=== PATIENT | female | born 1945 | race Caucasian/White ===

== ENCOUNTER 2017-08-11 11:00 | Outpatient (CLI) | payer MEDICARE ==
--- NOTE | 2017-08-11 12:20 | RAD ---
TWO VIEWS OF THE CHEST: 08/11/17 COMPARISON: 07/08/16 HISTORY: Cough with fever and congestion since Tuesday. FINDINGS: Two views of the chest shows normal sized cardiomediastinal silhouette. Increased interstitial kalpana ngs are present. There is a calcified granuloma in the right lung base. There is no evidence of cons olidation, or pleural effusion. Degenerative changes are seen in the spine. Hardware is seen in the cervical spine. IMPRESSION: No evidence of acute cardiopulmonary disease. POS: [facility]
== END 2017-08-11 11:01 | disposition home or self-care (01) ==
LOC: SCSRAD 11:00
PROVIDERS: ATTEND Nurse Practitioner Family
DX: R05 Cough (principal)
CPT/HCPCS: 71020

== ENCOUNTER 2018-02-06 16:41 | Inpatient (IN) | payer MEDICAID, MEDICARE ==
[2018-02-06] MEDS ORDERED: Morphine 4 MG/ML VIAL ONE ×2 (17:32→19:06)
[2018-02-06 17:38] LABS: #Eosinphils 0.1 thou/uL (0.0-0.7); #Lymphocytes 0.5 thou/uL (1.20-3.40); #Monocytes 0.3 thou/uL (0.11-0.59); #Neutrophils 1.9 thou/uL (1.40-6.50); %Eosinophils 2.2 % (0.0-10.0); %Lymphocytes 18.7 % (21.0-51.0); %Monocytes 11.6 % (0.0-10.0); %Neutrophils 67.4 % (42.0-75.0); Hemoglobin 13.9 g/dL (12.0-16.0); Mean Corpuscular HGB CONC 33.1 g/dL (32.0-36.0); Mean Corpuscular Hemoglobin 34.3 pg (27.0-31.0); Mean Platelet Volume 7.7 fL (7.4-10.4); Platelet Count 100 thou/uL (130-400); RBC Distribution Width 12.5 % (11.5-14.5); Red Blood Cell (RBC) Count 4.05 mill/uL (4.20-5.40); White Blood Cell (WBC) Count 2.9 thou/uL (4.8-10.8)
[2018-02-06 17:54] LABS: ALT (SGPT) 22 U/L (8-55); AST (SGOT) 47 U/L (5-34); Albumin 3.3 g/dL (3.4-4.8); Alkaline Phosphatase 143 U/L (40-150); Anion Gap 11 mmol/L (10-20); BUN (Urea Nitrogen) 9 mg/dL (9.8-20.1); Bilirubin, Total 0.9 mg/dL (0.2-1.2); Calc. Creatinine Clearance 0 mL/min (70-130); Calcium 9.2 mg/dL (7.8-10.44); Carbon Dioxide 28 mmol/L (23-31); Chloride 101 mmol/L (98-107); Estimated GFR-MDRD 74; Globulin 2.9 g/dL (2.4-3.5); Glucose 395 mg/dL (83-110); Potassium 4.4 mmol/L (3.5-5.1); Protein, Total 6.2 g/dL (6.0-8.3); Sodium 136 mmol/L (136-145)
--- NOTE | 2018-02-06 19:19 | RAD ---
AP VIEW PELVIS: INDICATIONS: Right hip pain after fall. FINDINGS: There is a comminuted right hip intertrochanteric fracture with varus malalignment. There is diffuse osteopenia. No definite additional fracture is grossly evident. IMPRESSION: Angulated right intertrochanteric hip fracture. POS: [facility]
--- NOTE | 2018-02-06 19:32 | RAD ---
AP VIEW CHEST: INDICATIONS: History of fall. FINDINGS: There is stable mild cardiomegaly. There are vascular calcifications involving the aortic arch. No confluent air space opacity is evident. Calcified granuloma in the right lower lobe is stable. Diff use osteopenia is similar. The ACDF plate is unchanged in position from the comparison study. IMPRESSION: Stable cardiomegaly. No definite acute cardiopulmonary abnormality. POS: [facility]
--- NOTE | 2018-02-06 19:33 | RAD ---
RIGHT HIP TWO VIEWS: INDICATIONS: Right hip pain. FINDINGS: There is an angulated, mildly comminuted right intertrochanteric hip fracture. There is moderate carlyn us angulation at the fracture site. No additional fracture is evident. There is diffuse osteopenia. IMPRESSION: Angulated right intertrochanteric hip fracture. POS: [facility]
[2018-02-06 20:07] LABS: CKMB 0.9 ng/mL (0-6.6); Troponin I Less than 0.010 ng/mL (< 0.028)
[2018-02-06] MEDS ORDERED: Ketorolac Tromethamine 30 MG/ML VIAL ONE (20:25)
[2018-02-06] MEDS ORDERED: Ondansetron ODT 4 MG TAB PO PRN (21:38)
[2018-02-06] MEDS ORDERED: Dextrose 5% in Water 1,000 ML IV PRN (21:38)
[2018-02-06] MEDS ORDERED: Ondansetron HCl/PF 4 MG/2 ML Vial IVP PRN (21:38)
[2018-02-06] MEDS ORDERED: hydrALAZINE 20 MG/ML VIAL SLOW IVP PRN (21:38)
[2018-02-06] MEDS ORDERED: Dextrose 50% Abboject 50 ML SYRINGE SLOW IVP PRN (21:38)
[2018-02-06] MEDS ORDERED: Morphine 4 MG/ML VIAL SLOW IVP PRN (21:38)
[2018-02-06] MEDS ORDERED: Famotidine 20 MG TAB PO SCH (21:45)
[2018-02-06 21:58] VITALS: BMI 32.9
[2018-02-06] MEDS: Morphine 4 MG/ML VIAL SLOW IVP PRN (22:32)
[2018-02-06] MEDS: Sodium Chloride 0.9% 1,000 ML IV SCH (22:33)
[2018-02-06] MEDS: Insulin Regular 300 UNITS/3 ML VIAL SC PRN (23:04)
[2018-02-07] MEDS: Ketorolac Tromethamine 30 MG/ML VIAL IVP SCH ×5 (00:19→23:45)
--- NOTE | 2018-02-07 00:31 | HP ---
DATE OF ADMISSION: 02/06/2018 REQUESTING PHYSICIAN: Dr. Ibarra. ATTENDING SURGEON: Dr. Cline. CONSULTATIONS: Orthopedics, Dr. Aj. HISTORY OF PRESENT ILLNESS: The patient is a 72-year-old female who was at home and her right leg buckled and she fell down on her right side. The patient had immediate right-sided hip pain. She was brought to the emergency room by ground EMS. She underwent evaluation and examination and was noted to have a right proximal femur fracture, at which time we were asked to evaluate the patient for admission and obtain Orthopedic consultation. The patient denied dizziness, shortness of breath, chest pain, or any syncopal type symptoms prior to falling or after her fall. ALLERGIES: ALBUTEROL, BARIUM, IODINE, and TYLENOL. CURRENT MEDICATIONS: Hydrocodone with ibuprofen, potassium, Zofran, melatonin, lactulose, quinine, iron, pantoprazole, isosorbide, carvedilol, hydroxyzine, NovoLog, Lantus, and Lexapro. PAST MEDICAL HISTORY: CHF, COPD, type 2 diabetes, liver cirrhosis, atherosclerosis, sciatica, fibromyalgia, gastroesophageal reflux disease, and peptic ulcer disease. PAST SURGICAL HISTORY: Neck surgery, right ankle surgery, cardiac stent x3, cholecystectomy, and hysterectomy. SOCIAL HISTORY: The patient denies drug or alcohol use. Quit smoking approximately 5 years ago and currently lives with her family. FAMILY MEDICAL HISTORY: Diabetes, hypertension, and liver disease. REVIEW OF SYSTEMS: Ten-point review of systems is negative, unless otherwise stated. PHYSICAL EXAMINATION: VITAL SIGNS: Blood pressure 131/62, heart rate 60, respirations 18, oxygen saturation 95% on room air, temperature is 98.1. GENERAL: The patient is resting comfortably in bed. She is alert and oriented x3. Tejinder coma scale is 15. HEENT: Head is normocephalic, atraumatic. Eyes: Extraocular motion intact. PERRLA bilaterally. Ears are atraumatic without discharge. Nose is atraumatic without discharge. Oropharynx is clear. NECK: Nontender. Trachea is midline. No JVD. CHEST: Clear to auscultation with scant occasional wheezing bilaterally. HEART: Regular rate and rhythm. ABDOMEN: Soft, flat, nontender with active bowel sounds. Pelvis is stable with tenderness to palpation to right hip consistent with her fracture. EXTREMITIES: Neurovascularly intact x4. BACK: Nontender and atraumatic. LABORATORY FINDINGS: White blood cell count 2.9, hemoglobin 13.9, hematocrit 42.0, platelets 100. Sodium 136, potassium 4.4, chloride 101, CO2 of 28, BUN 9 , creatinine 0.77, glucose 395. Total bilirubin 0.9, AST 47, ALT 22, alkaline phosphatase 143, CK-MB 0.9, troponin less than 0.010. RADIOGRAPHIC FINDINGS: AP chest shows stable cardiomegaly. AP pelvis shows an angulated right intertrochanteric hip fracture. Two-views of the right hip show angulated right intertrochanteric hip fracture. ASSESSMENT AND PLAN: 1. Status post ground level fall. 2. Right hip fracture. 3. Hyperglycemia. 4. History of chronic obstructive pulmonary disease. 5. History of coronary artery disease/congestive heart failure. 6. History of fibromyalgia. Plan will be to admit the patient to the surgical floor for pain control, pulmonary toilet, gastritis, mechanical deep venous thrombosis prophylaxis. The patient will be made n.p.o. after midnight and case was discussed with Dr. Aj. His plan is to take her to the operating room tomorrow morning. The evaluation, examination, and laboratory and radiographic findings will be discussed with Dr. Cline after this dictation. ELLIE
[2018-02-07 02:01] LABS: #Lymphocytes 0.8 thou/uL (1.20-3.40); #Monocytes 0.7 thou/uL (0.11-0.59); #Neutrophils 3.2 thou/uL (1.40-6.50); %Basophils 0.3 % (0.0-1.0); %Lymphocytes 16.2 % (21.0-51.0); %Neutrophils 68.5 % (42.0-75.0); Hemoglobin 12.6 g/dL (12.0-16.0); Mean Corpuscular Hemoglobin 34.7 pg (27.0-31.0); Mean Platelet Volume 7.7 fL (7.4-10.4); Platelet Count 94 thou/uL (130-400); RBC Distribution Width 12.6 % (11.5-14.5); Red Blood Cell (RBC) Count 3.62 mill/uL (4.20-5.40); White Blood Cell (WBC) Count 4.7 thou/uL (4.8-10.8)
[2018-02-07 02:23] LABS: CKMB 0.7 ng/mL (0-6.6); Troponin I Less than 0.010 ng/mL (< 0.028)
[2018-02-07 02:55] LABS: Anion Gap 7 mmol/L (10-20); BUN (Urea Nitrogen) 13 mg/dL (9.8-20.1); Calc. Creatinine Clearance 91 mL/min (70-130); Calcium 8.8 mg/dL (7.8-10.44); Carbon Dioxide 31 mmol/L (23-31); Chloride 103 mmol/L (98-107); Estimated GFR-MDRD 74; Glucose 262 mg/dL (83-110); Magnesium 1.8 mg/dL (1.6-2.6); Phosphorus 3.5 mg/dL (2.3-4.7); Potassium 4.4 mmol/L (3.5-5.1); Sodium 137 mmol/L (136-145)
[2018-02-07] MEDS: Morphine 4 MG/ML VIAL SLOW IVP PRN (04:09)
--- NOTE | 2018-02-07 09:12 | CON ---
DATE OF CONSULTATION: 02/07/2018 CHIEF COMPLAINT: Right hip pain. HISTORY OF PRESENT ILLNESS: Ms. Aguirre is a 72-year-old female who lives with her family. She is fair ly independent. She uses a cane for balance. She does not fall frequently. She lost her balance, t gita yesterday and fell on her right side. She had immediate pain in the right hip and leg. She wa s unable to ambulate. She was taken to the emergency department by EMS. She has been found to have a right intertrochanteric femur fracture. She has been admitted to the hospital. She has been comfo rtable after receiving pain medication. She is resting with family with her. She has a previous dis buck femur fracture several years ago she reports. ALLERGIES: ALBUTEROL, BARIUM, IODINE, TYLENOL. MEDICATIONS: Include hydrocodone for chronic pain, potassium, Zofran, melatonin, lactulose, quinine, iron, pantoprazole, isosorbide, carvedilol, hydroxyzine, NovoLog, Lantus, and Lexapro. PAST MEDICAL HISTORY: Congestive heart failure, COPD, diabetes, arthrosclerosis, sciatica, fibromyal karthik, GERD, peptic ulcer disease, and history of liver cirrhosis. PAST SURGICAL HISTORY: Right ankle surgery, cardiac stenting, cholecystectomy, previous cervical spi ne surgery. SOCIAL HISTORY: Patient denies tobacco, alcohol, or drug use currently. FAMILY MEDICAL HISTORY: Positive for diabetes and hypertension. REVIEW OF SYSTEMS: Positive for right hip pain. She feels sleepy. Otherwise, she denies positives on 10 point review of systems. PHYSICAL EXAMINATION: VITAL SIGNS: Temperature is 97.7, pulse is 78, respiratory rate 16, oxygen saturation 99%, blood pre ssure is 93/58. GENERAL: She is lying supine. She is asleep upon my arrival, but easily arousable. She answers que stions appropriately. HEENT: Normocephalic, atraumatic. NECK: She is wearing nasal cannula oxygen. RESPIRATORY: Breathing comfortably. CARDIOVASCULAR: Pulse is palpable and regular. ABDOMEN: Soft, nontender, and nondistended. MUSCULOSKELETAL: The patient's right leg has pain with motion. She is in a shortened and externally rotated position. She has intact sensation distally. She can wiggle the toes. She has a palpable dorsalis pedis pulse. IMAGING DATA: X-rays demonstrate an intertrochanteric femur fracture with significant displacement o f the right femur. IMPRESSION: Right intertrochanteric femur fracture in an elderly patient. PLAN: At this point, the patient will go to the operating room for a short trochanteric femoral nail . This will stabilize her femur and allow her to mobilize. This will provide pain relief. She is a t risk for medical complication given her multiple medical problems. She has fair health and activit y level at baseline, so hopefully she will do well. I have reviewed risks and benefits. Her family and the patient wants to proceed.
[2018-02-07 09:48] LABS: INR-International Normal Ratio 1.5; PTT 32.6 SEC (22.9-36.1)
[2018-02-07] MEDS: Famotidine 20 MG TAB PO SCH ×2 (09:52→21:27)
[2018-02-07] MEDS: Sodium Chloride 0.9% 1,000 ML IV SCH ×2 (10:03→20:05)
[2018-02-07] MEDS ORDERED: CEFAZOLIN/Water 2 GM/20 ML SYRINGE SLOW IVP SCH (12:00)
[2018-02-07] MEDS ORDERED: Fentanyl 250 MCG/5 ML VIAL ONE (13:00)
[2018-02-07] MEDS ORDERED: CEFAZOLIN/Water 2 GM/20 ML SYRINGE ONE (13:15)
[2018-02-07] MEDS ORDERED: Fentanyl 100 MCG/2 ML VIAL ONE (13:27)
--- NOTE | 2018-02-07 14:38 | OP ---
DATE OF PROCEDURE: 02/07/2018 OPERATION: Right femur intramedullary nail. PREOPERATIVE DIAGNOSIS: Right femur intertrochanteric fracture. POSTOPERATIVE DIAGNOSIS: Right femur intertrochanteric fracture. COMPLICATIONS: None. ESTIMATED BLOOD LOSS: 200 mL. SURGEON: Sid Aj M.D. WINDOWS SUPPORT ENGINEER: Jasper Reilly PA-C. IMPLANTS: Synthes short trochanteric nail size 12. INDICATIONS: Ms. Aguirre is a 72-year-old female who fell. She fractured her right proximal femur. Sh e was indicated for intramedullary nail fixation of the femur to restore anatomic alignment and promo te healing. Risks have been reviewed. She elected to proceed with the surgery. Goal of surgery is early mobilization. DESCRIPTION OF PROCEDURE: Ms. Aguirre was identified in the preoperative holding area. Her correct ext remity was marked. She was carried to the operating room. She was positioned supine. General anest hesia was induced. A multidisciplinary timeout was performed. The right lower extremity was prepped and draped in sterile fashion. We began the procedure with evaluation of the femur with intraoperative x-ray. We reduced the fractu re with longitudinal traction and manipulation. At this point, we prepped and draped the right lower extremity. We then proceeded with a small incision over the proximal thigh. We dissected down thro ugh subcutaneous tissues to the tip of the trochanter. A guidewire was inserted. We then over reame d the guidewire. Next, we placed a size 12 short trochanteric nail. We then placed our guidewire in centered position of the femoral head. We placed the helical blade. This was locked in a dynamic p osition. We then placed our distal cross lock screw using the appropriate guide. We took final imag es. We thoroughly irrigated. The tissues were closed with 0 Vicryl suture, 2-[address] aples for the skin. A sterile dressing was applied at this point. The patient was taken to the [facility] very room in good condition without complication.
[2018-02-07] MEDS ORDERED: Ondansetron HCl/PF 4 MG/2 ML Vial IVP PRN (14:59)
[2018-02-07] MEDS ORDERED: Promethazine HCl 25 MG/ML VIAL IM PRN (14:59)
[2018-02-07] MEDS ORDERED: Meperidine HCl/PF 25 MG/ML VIAL SLOW IVP PRN (14:59)
[2018-02-07] MEDS ORDERED: PHENYLEPHRINE-NS 100 MCG/ML 10 ML SYRINGE ONE (16:34)
[2018-02-07] MEDS ORDERED: Glycopyrrolate 0.2 MG/ML 5 ML SYRINGE ONE (16:34)
[2018-02-07] MEDS ORDERED: ePHEDrine/0.9% NaCl/PF SYRINGE 50 mg/10 ml ONE (16:34)
[2018-02-07] MEDS ORDERED: Lidocaine 1% PF 5 ML VIAL ONE (16:34)
[2018-02-07] MEDS ORDERED: PROPOFOL 200 MG/20 ML VIAL ONE (16:34)
--- NOTE | 2018-02-07 18:59 | RAD ---
THREE VIEWS OF THE RIGHT HIP: 02/07/18 INDICATION: Trochanteric nail. COMPARISON: Prior exam dated 02/06/18. FINDINGS: Since the comparison examination there has been interval placement of a cephalomedullary device trans fixing the patient's right intertrochanteric fracture. Fracture alignment is near anatomic. Instrumen tation projects in the expected position. Total fluoroscopic time is 30.2 seconds. Total exposure is 5.5 mGy. IMPRESSION: Postop right hip. POS: [facility]
--- NOTE | 2018-02-07 19:26 | PRG ---
DATE OF SERVICE: 02/07/2018 ATTENDING PHYSICIAN: Dr. Bolivar Deleon. SUBJECTIVE: Mrs. Aguirre is a 72-year-old female who suffered a ground-level fall yesterday and was fou nd to have a right proximal femur fracture. She is scheduled to go to the OR today with Dr. Chato estrella for surgical fixation of this fracture. This morning on exam, she reports that her pain is well co ntrolled. She voices no other complaints. OBJECTIVE: VITAL SIGNS: Blood pressure 93/58, pulse 78, temperature 97.7, respirations 16, O2 sat 99% on 1.5 li ters. GENERAL: The patient is an elderly adult female in no acute distress. HEENT: Normocephalic and atraumatic. RESPIRATORY: Breath sounds are mostly clear to auscultation bilaterally. She does have occasional w heezes. CARDIOVASCULAR: She has regular rate and rhythm. No murmurs, gallops or rubs. ABDOMEN: Soft, nontender, nondistended. She has normal bowel sounds. EXTREMITIES: She is neurovascularly intact x4. NEUROLOGIC: She has no focal deficits. She is alert and oriented x3. GCS is 15. LABORATORY DATA: WBC is 4.7, hemoglobin 12.6, hematocrit 36.9, platelets 94. Coag: PT 18.0, INR 1. 5, APTT 32.6. Chemistry: Sodium 137, potassium 4.4, chloride 103, bicarbonate 31, BUN 13, creatinin e 0.77, glucose 262, calcium 8.8, phosphorus 3.5, magnesium 1.8. IMAGING: There are no radiographs reviewed today. ASSESSMENT: 1. Status post ground-level fall. 2. Right hip fracture. 3. Hyperglycemia. 4. History of chronic obstructive pulmonary disease. 5. History of coronary artery disease and congestive heart failure. 6. History of fibromyalgia. 7. History of chronic liver disease. PLAN: The plan is to go to the OR today with Dr. Aj for surgical fixation of her right hip. Postoperatively, we will optimize the patient's pain control. She will need PT and OT for help with mobilization. Patient will likely be a good candidate for rehabilitation, so rehab screen will be pl aced. Gastritis and DVT prophylaxis as appropriate. Incentive spirometry and pulmonary toileting as well. This patient was seen and examined on rounds with Dr. Deleon who agrees with this assessment plan.
[2018-02-07] MEDS ORDERED: Hydrocortisone Sod Succ/PF 100 mg/2 ml Vial IVP SCH (20:00)
[2018-02-07] MEDS ORDERED: Sodium Chloride 0.9% 250 ML 250 ML IV SCH (20:00)
[2018-02-07] MEDS: Insulin Regular 300 UNITS/3 ML VIAL SC PRN (21:16)
[2018-02-07 21:19] LABS: Troponin I Less than 0.010 ng/mL (< 0.028)
[2018-02-07] MEDS: CEFAZOLIN/Water 2 GM/20 ML SYRINGE SLOW IVP SCH (21:50)
--- NOTE | 2018-02-07 23:57 | PRG ---
DATE OF SERVICE: 02/07/2018 ATTENDING PHYSICIAN: Dr. Bolivar Deleon. SUBJECTIVE: Ms. Aguirre is a 72-year-old female, who had a ground-level fall with right hip fracture. She underwent fixation of right hip fracture today. She is currently seen postoperatively on the surgical floor. OBJECTIVE: VITAL SIGNS: Temperature 98.6, pulse 99, respirations 18, O2 sat 96% on 3 liters nasal cannula, blood pressure 93/57. CARDIOVASCULAR: Heart sounds normal, regular rate and rhythm. PULMONARY: Bilateral breath sounds clear. No respiratory distress. ABDOMEN: Soft, nontender, nondistended. EXTREMITIES: Dressing in place to right hip, clean, dry, and intact. Moves all extremities. Cap refill brisk in all extremities. Pulses 2+ in all extremities. NEUROLOGIC: GCS 15, awake, alert, oriented x3. ASSESSMENT: 1. Status post ground-level fall. 2. Status post open reduction and internal fixation, right hip fracture. 3. Postoperative hypotension, asymptomatic. PLAN: 1. We will give the patient 250 mL fluid bolus. 2. Begin hydrocortisone and check cortisol level. 3. Continue oral analgesia. 4. Antibiotics per Orthopedic Service. 5. Lovenox for deep vein thrombosis prophylaxis. MTDD
[2018-02-08] MEDS: Hydrocortisone Sod Succ/PF 100 mg/2 ml Vial IVP SCH ×3 (04:18→20:16)
[2018-02-08] MEDS: Sodium Chloride 0.9% 1,000 ML IV SCH ×2 (04:18→12:47)
[2018-02-08] MEDS: Insulin Regular 300 UNITS/3 ML VIAL SC PRN ×4 (06:11→21:30)
[2018-02-08] MEDS: Ketorolac Tromethamine 30 MG/ML VIAL IVP SCH (06:12)
[2018-02-08] MEDS: CEFAZOLIN/Water 2 GM/20 ML SYRINGE SLOW IVP SCH (06:12)
[2018-02-08] MEDS: Enoxaparin Sodium 40 MG/0.4 ML SYRINGE SC SCH (08:12)
[2018-02-08] MEDS: Famotidine 20 MG TAB PO SCH ×2 (08:12→20:16)
[2018-02-08] MEDS ORDERED: traMADol HCl 50 MG TAB PO PRN (09:59)
[2018-02-08] MEDS: Morphine 4 MG/ML VIAL SLOW IVP PRN (10:03)
[2018-02-08] MEDS: Ibuprofen 600 MG TAB PO SCH ×2 (10:33→17:08)
[2018-02-08] MEDS: traMADol HCl 50 MG TAB PO SCH ×3 (10:33→21:29)
--- NOTE | 2018-02-08 12:53 | RAD ---
AP PELVIS ONE VIEW: HISTORY: Right hip fracture. COMPARISON: 02/06/2018 FINDINGS: A compression and short kerwin now transfix the right hip fracture, in anatomic alignment. Sacral ala a nd pelvic rings are intact. Osseous structures are demineralized. IMPRESSION: 1. Internal fixation, right hip, without evidence of hardware complication. 2. Osteoporosis. POS: [facility]
--- NOTE | 2018-02-08 18:08 | PRG ---
DATE OF SERVICE: 02/08/2018 ATTENDING PHYSICIAN: Bolivar Deleon D.O. SUBJECTIVE: Ms. Aguirre is a 72-year-old female who suffered a ground level fall 2 days ago and was fou nd to have a right proximal femur fracture. She is now postop day #1 status post ORIF of her fractur e. Overnight, she developed hypotension into the 80s, was given a 250 mL bolus after which her blood pressure responded somewhat. She was given another 250 mL bolus this morning. She was also started on hydrocortisone 100 mg as well as 50 mg q.8 hours. This morning, on exam, she was attempting to w ork with physical therapy, but reports that she was unable to do so due to inadequate pain control. The patient also reports that she heard a pop in her right hip when she tried to stand. OBJECTIVE: VITAL SIGNS: Blood pressure 120/66, pulse 88, temperature 97.6, respirations 16 and O2 sat 97% on 3 liters. GENERAL: The patient is an elderly adult female sitting at the edge of the bed. She is attempting t o work with physical therapy, but is unable to do so due to pain. HEENT: Normocephalic and atraumatic. RESPIRATORY: Breath sounds clear to auscultation bilaterally. CARDIOVASCULAR: She has regular rate and rhythm. No murmurs, gallops or rubs. ABDOMEN: Soft, nontender and nondistended. She has normal bowel sounds. EXTREMITIES: She is neurovascularly intact x4. NEUROLOGIC: She has no focal deficits. Her GCS is 15. LABORATORY DATA: Significant for elevated glucose of 332. IMAGING DATA: 1. Pelvis x-ray. A. Internal fixation of right hip without evidence of hardware complication. B. Osteoporosis. ASSESSMENT: 1. Status post ground level fall. 2. Right hip fracture, status post open reduction and internal fixation. 3. Hyperglycemia. 4. History of chronic obstructive pulmonary disease. 5. History of coronary artery disease. 6. History of congestive heart failure. 7. History of fibromyalgia. 8. History of chronic liver disease. 9. Acute traumatic pain. PLAN: 1. We will optimize the patient's pain control today and have her work with PT and OT for mobilizati on. Given the patient's history of liver disease, we will attempt to optimize her pain control witho ut Tylenol. Morphine, tramadol and ibuprofen for pain. 2. X-ray of the right hip to evaluate for hardware malfunction was unremarkable. 3. Continue PT and OT for mobilization. 4. Case management following for help with the discharge planning. This patient was seen and examined along with Dr. Bolivar Deleon on rounds, who agrees with the assess ment and plan.
--- NOTE | 2018-02-09 01:31 | PRG ---
DATE OF SERVICE: 02/09/2018 SUBJECTIVE: The patient is hospital day #3, postop day #2, status post ground level fall in which sh silvana sustained a right proximal femur fracture. The patient underwent open reduction and internal fixat ion of same. She tolerated the procedure well, but has been having some pain control issues since to include specifically when she is trying to work with physical and occupational therapy. Of note, th e patient has a history of narcotic use from her fibromyalgia and chronic other pains which are proba sean contributing to the difficulty of getting her pain regimen controlled. Otherwise, she is tolerat ing a diet. OBJECTIVE: VITAL SIGNS: Temperature is 98.1, heart rate 89, blood pressure 156/76, respirations 19, oxygen satu ration 96% on room air. GENERAL: Patient is asleep in bed. She appears in no distress. ASSESSMENT AND PLAN: 1. Status post ground level fall. 2. Status post open reduction and internal fixation of right hip fracture. Plan will be to continue supportive care and await placement decision.
[2018-02-09] MEDS: Sodium Chloride 0.9% 1,000 ML IV SCH ×3 (02:17→20:58)
[2018-02-09] MEDS: Ibuprofen 600 MG TAB PO SCH ×3 (02:20→18:44)
[2018-02-09] MEDS: traMADol HCl 50 MG TAB PO SCH ×4 (04:41→18:44)
[2018-02-09] MEDS: Hydrocortisone Sod Succ/PF 100 mg/2 ml Vial IVP SCH ×3 (04:42→20:52)
[2018-02-09 05:08] LABS: Anion Gap 5 mmol/L (10-20); BUN (Urea Nitrogen) 22 mg/dL (9.8-20.1); Calc. Creatinine Clearance 87 mL/min (70-130); Carbon Dioxide 31 mmol/L (23-31); Chloride 104 mmol/L (98-107); Estimated GFR-MDRD 71; Glucose 298 mg/dL (83-110); Magnesium 1.9 mg/dL (1.6-2.6); Phosphorus 2.4 mg/dL (2.3-4.7); Potassium 4.3 mmol/L (3.5-5.1); Sodium 136 mmol/L (136-145)
[2018-02-09 05:11] LABS: #Lymphocytes 0.7 thou/uL (1.20-3.40); #Monocytes 0.6 thou/uL (0.11-0.59); #Neutrophils 5.3 thou/uL (1.40-6.50); %Basophils 0.4 % (0.0-1.0); %Eosinophils 0.5 % (0.0-10.0); %Lymphocytes 10.1 % (21.0-51.0); %Monocytes 9.1 % (0.0-10.0); %Neutrophils 79.9 % (42.0-75.0); Hemoglobin 10.6 g/dL (12.0-16.0); Mean Corpuscular HGB CONC 33.4 g/dL (32.0-36.0); Mean Corpuscular Hemoglobin 34.3 pg (27.0-31.0); Mean Platelet Volume 8.1 fL (7.4-10.4); Platelet Count 87 thou/uL (130-400); RBC Distribution Width 12.5 % (11.5-14.5); Red Blood Cell (RBC) Count 3.09 mill/uL (4.20-5.40); White Blood Cell (WBC) Count 6.6 thou/uL (4.8-10.8)
[2018-02-09] MEDS: Insulin Regular 300 UNITS/3 ML VIAL SC PRN ×4 (06:31→21:10)
[2018-02-09] MEDS: Enoxaparin Sodium 40 MG/0.4 ML SYRINGE SC SCH (08:52)
[2018-02-09] MEDS: Famotidine 20 MG TAB PO SCH ×2 (08:52→20:55)
[2018-02-09] MEDS ORDERED: traMADol HCl 50 MG TAB PO PRN (09:53)
[2018-02-09] MEDS: Insulin Detemir 100 UNITS/ML 14 UNITS in Pre-Filled Syringe 1 EACH SC SCH (10:42)
[2018-02-09] MEDS: Polyethylene Glycol 3350 17 GM Packet PO SCH (10:43)
[2018-02-09] MEDS: Senokot S 8.6-50 MG TAB PO SCH ×2 (10:43→20:57)
--- NOTE | 2018-02-09 19:30 | PRG ---
DATE OF SERVICE: 02/09/2018 ATTENDING PHYSICIAN: Dr. Deleon. SUBJECTIVE: Ms. Aguirre is a 72-year-old female who suffered a ground level fall 3 days ago and was fou nd to have a right proximal femur fracture. She is now postop day #2 status post open reduction and internal fixation. She had developed hypotension night before last. She was started on hydrocortiso ne with an initial dose of 100 mg followed by 50 mg q.8 hours. This morning on exam, her vital signs have improved. She has had problems mobilizing with physical therapy due to pain. Other than pain control, she voices no complaints this morning. OBJECTIVE: VITAL SIGNS: BP 137/73, pulse 80, temperature 98.2, respirations 12, O2 sat 92% on room air. GENERAL APPEARANCE: The patient is an elderly adult female lying in bed. She is in no acute distres s. HEENT: Normocephalic and atraumatic. RESPIRATORY: Breath sounds are clear to auscultation bilaterally. CARDIOVASCULAR: She has regular rate and rhythm. No murmurs, gallops or rubs. ABDOMEN: Soft, nontender, and nondistended. She has hypoactive bowel sounds. EXTREMITIES: She is neurovascularly intact x4. NEUROLOGIC: She has no focal deficits. Her GCS is 15. She is alert and oriented x3. LABORATORY DATA: Today, CBC is significant for white blood cells 6.6, hemoglobin 10.6, hematocrit 31 .7, and platelets 87. Today, chemistry is significant for glucose of 298. Her BUN is 22 and creatin ine 0.80. Her ammonia today is 71. IMAGING: There are no images to review today. ASSESSMENT: 1. Status post ground level fall. 2. Right hip fracture, status post open reduction and internal fixation. 3. Hyperglycemia. 4. History of chronic obstructive pulmonary disease. 5. History of coronary artery disease. 6. History of congestive heart failure. 7. History of fibromyalgia. 8. History of chronic liver disease. 9. Acute traumatic pain. PLAN: 1. We will restart the patient's home lactulose given her borderline high ammonia level. This shoul d also help with bowel function. We will add other bowel meds as well. 2. Continue to optimize pain control and have patient worked with PT and OT for mobilization. We wi ll continue to withhold Tylenol for pain control. 3. Case management is following for help with discharge planning. This patient was seen and examined on rounds with Dr. Bolivar Deleon who agrees with assessment and pl an.
[2018-02-09] MEDS ORDERED: Calcium Carbonate 500 MG ChewTAB PO PRN (23:19)
[2018-02-10] MEDS: Ibuprofen 600 MG TAB PO SCH ×2 (01:42→09:08)
[2018-02-10] MEDS: traMADol HCl 50 MG TAB PO SCH ×2 (01:42→09:08)
[2018-02-10] MEDS: Hydrocortisone Sod Succ/PF 100 mg/2 ml Vial IVP SCH ×2 (05:09→12:26)
[2018-02-10] MEDS: Sodium Chloride 0.9% 1,000 ML IV SCH (05:10)
[2018-02-10] MEDS: Insulin Regular 300 UNITS/3 ML VIAL SC PRN ×2 (07:04→12:26)
[2018-02-10 08:01] VITALS: TEMP 98.1
[2018-02-10] MEDS: Senokot S 8.6-50 MG TAB PO SCH (09:07)
[2018-02-10] MEDS: Enoxaparin Sodium 40 MG/0.4 ML SYRINGE SC SCH (09:07)
[2018-02-10] MEDS: Famotidine 20 MG TAB PO SCH (09:08)
[2018-02-10] MEDS: Polyethylene Glycol 3350 17 GM Packet PO SCH (09:09)
[2018-02-10] MEDS: Insulin Detemir 100 UNITS/ML 14 UNITS in Pre-Filled Syringe 1 EACH SC SCH (09:10)
[2018-02-10] MEDS ORDERED: traMADol HCl 50 MG TAB PO PRN (10:15)
[2018-02-10] MEDS ORDERED: traMADol HCl 50 MG TAB PO SCH ×2 (10:30→18:00)
[2018-02-10 12:11] VITALS: BP 122/62
[2018-02-10] MEDS ORDERED: Gabapentin 100 MG CAP PO SCH (21:00)
--- NOTE | 2018-02-10 21:26 | DIS ---
DATE OF ADMISSION: 02/06/2018 ADMITTING PHYSICIAN: Dr. Cline. CONSULTING PHYSICIAN: Dr. Aj, Orthopedics REASON FOR HOSPITALIZATION: Ground level fall with right hip pain. HOSPITAL DIAGNOSIS: Right femur intertrochanteric fracture. PROCEDURE: Right femur IM nail. Date of procedure was 02/07/2018. Surgeon: Dr. Sdi Aj. DISCHARGE CONDITION: Good. DISPOSITION: retirement facility for physical and occupational therapy. BRIEF HISTORY OF HOSPITALIZATION: Ms. Aguirre is a 72-year-old female who was at home when she had a ground level fall with subsequent right proximal femur fracture identified in the emergency department. She was admitted to the hospital by Trauma Services. Orthopedic consult was obtained. She was taken to the OR by Dr. Aj for fixation of the fracture. She was then managed on the surgical floor. She started with physical and occupational therapy. Pain medications were transitioned from IV to oral. Case management was consulted for discharge planning. The patient was discharged to nursing home facility. She may follow up with Dr. Aj in 2 weeks. ELLIE
--- NOTE | 2018-02-15 12:57 | PQF ---
ANNA MARIE RICKS MICHAEL W MD [id number] SURG A- [id number] CLINICAL DOCUMENTATION CLARIFICATION FORM: POST DISCHARGE DATE: 02/15/2018 ATTN: Dr. Cline Please exercise your independent, professional judgment in responding to the clarification form. Clinical indicators are provided on the bottom of this form for your review Please check appropriate box(s): HEART FAILURE: A. TYPE: [ ] Chronic Systolic / HFrEF [ ] Chronic Diastolic / HFpEF [ ] Chronic Combined Systolic / Diastolic [ ] Other diagnosis (please specify) [ ] Unable to determine In addition, please specify: Present on Admission (POA): [ ] Yes [ ] No [ ] Unable to determine For continuity of documentation, please document condition throughout progress notes and discharge summary. Thank You. CLINICAL INDICATORS - SIGNS / SYMPTOMS / LABS History of congestive heart failure. RISKS: Atherosclerosis. TREATMENTS: Patient on 40 mg Furosemide po q am. (This form is maintained as a part of the permanent medical record) 2014 [employer]. All Rights Reserved Nimisha [email or web address] [phone] I can't respond to this as I never saw this patient. She was admitted to the trauma team on the night I was care transitions nurse and seen be the trauma surgeon the following day. You would need to communicate with the trauma PA (Colton) regarding this. MANUEL ARGUETA
--- NOTE | 2018-02-23 13:37 | PQF ---
ANNA MARIE RICKS Gary PA-C [id number] SURG [id number] CLINICAL DOCUMENTATION CLARIFICATION FORM: POST DISCHARGE DATE: 02/15/2018 ATTN: [facility] Please exercise your independent, professional judgment in responding to the clarification form. Clinical indicators are provided on the bottom of this form for your review Please check appropriate box(s): HEART FAILURE: A. TYPE: [ ] Chronic Systolic / HFrEF [ ] Chronic Diastolic / HFpEF [ X ] Chronic Combined Systolic / Diastolic [ ] Other diagnosis (please specify) [ ] Unable to determine In addition, please specify: Present on Admission (POA): [ X ] Yes [ ] No [ ] Unable to determine For continuity of documentation, please document condition throughout progress notes and discharge summary. Thank You. CLINICAL INDICATORS - SIGNS / SYMPTOMS / LABS HIstory of congestive heart failure. RISKS: Atherosclerosis. TREATMENTS: Patient on 40 mg Furosemide po q am. (This form is maintained as a part of the permanent medical record) 2014 [employer] All Rights Reserved Nimisha [email or web address] [phone] MTDD
== END 2018-02-10 13:45 | DRG 481 ==
LOC: ERS 16:41 → SURG A 19:30 → SJJU 02-07 08:43 → SURG A 02-07 08:47 → SJJU 02-07 08:53 → SURG A 02-07 08:56 → SJJU 02-07 08:59 → SURG A 02-07 09:07
PROVIDERS: ADMIT Specialist; ATTEND Specialist
PROC: 0QS606Z Reposition Right Upper Femur with Intramedullary Internal Fixation Device, Open Approach (ICD-10-PCS; principal; 2018-02-07)
DX: S72.141A Displaced intertrochanteric fracture of right femur, initial encounter for closed fracture (principal); I50.42 Chronic combined systolic (congestive) and diastolic (congestive) heart failure; E11.65 Type 2 diabetes mellitus with hyperglycemia; J44.9 Chronic obstructive pulmonary disease, unspecified; K21.9 Gastro-esophageal reflux disease without esophagitis; M79.7 Fibromyalgia; I25.10 Atherosclerotic heart disease of native coronary artery without angina pectoris; G89.11 Acute pain due to trauma; K74.60 Unspecified cirrhosis of liver; I95.81 Postprocedural hypotension; Z87.11 Personal history of peptic ulcer disease; Z87.891 Personal history of nicotine dependence; Z88.6 Allergy status to analgesic agent; Z88.8 Allergy status to other drugs, medicaments and biological substances; Z79.4 Long term (current) use of insulin; Z79.899 Other long term (current) drug therapy; W18.39XA Other fall on same level, initial encounter; Y92.019 Unspecified place in single-family (private) house as the place of occurrence of the external cause
CPT/HCPCS: 36415; 36416; 71045; 72170; 76001; 80048; 80053; 82140; 82533; 82553; 83735; 83880; 84100; 84484; 85025; 85610; 85730; 93005; 96374; 96375; 96376; C1713; G0390; G8978-GP-CM; G8979-GP-CI; G8987-GO-CL; G8988-GO-CJ; J1650; J1720; J1815; J1885; J2001; J2270; J2704; J3010; Q0162

== ENCOUNTER 2018-02-28 14:06 | Emergency (ER) | payer MEDICARE ==
--- NOTE | 2018-02-28 17:33 | ULT ---
DOPPLER VENOUS ULTRASOUND OF RIGHT LOWER EXTREMITY 02/28/18 INDICATION: Pain, swelling postoperative patient with right knee pain and swelling. TECHNIQUE: Leon scale, color doppler and vascular duplex with spectral analysis was performed of the deep venous structures of the right lower extremity. Common femoral vein, superficial femoral vein, popliteal ve in, posterior tibial vein, proximal greater saphenous and profunda veins were assessed. FINDINGS: Normal compression, flow, and augmentation seen within the deep venous structures of the right lower extremity. IMPRESSION: No evidence of DVT to the right lower extremity. POS: ZION
== END 2018-02-28 17:34 ==
LOC: EEVIPCON 14:06 → ERS 14:06
DX: M96.89 Other intraoperative and postprocedural complications and disorders of the musculoskeletal system (principal); M79.89 Other specified soft tissue disorders; E11.9 Type 2 diabetes mellitus without complications; F41.9 Anxiety disorder, unspecified; F32.9 Major depressive disorder, single episode, unspecified; Z87.891 Personal history of nicotine dependence; Z79.899 Other long term (current) drug therapy; Z79.4 Long term (current) use of insulin

== ENCOUNTER 2018-03-02 00:54 | Observation (INO) | payer MEDICARE ==
[2018-03-02 01:46] LABS: #Eosinphils 0.3 thou/uL (0.0-0.7); #Lymphocytes 0.8 thou/uL (1.20-3.40); #Monocytes 0.3 thou/uL (0.11-0.59); #Neutrophils 1.3 thou/uL (1.40-6.50); %Basophils 1.5 % (0.0-1.0); %Eosinophils 9.3 % (0.0-10.0); %Lymphocytes 29.7 % (21.0-51.0); %Monocytes 12.4 % (0.0-10.0); %Neutrophils 47.1 % (42.0-75.0); Hemoglobin 11.9 g/dL (12.0-16.0); Mean Corpuscular Hemoglobin 35.3 pg (27.0-31.0); Mean Platelet Volume 7.6 fL (7.4-10.4); Platelet Count 141 thou/uL (130-400); RBC Distribution Width 13.3 % (11.5-14.5); Red Blood Cell (RBC) Count 3.38 mill/uL (4.20-5.40); White Blood Cell (WBC) Count 2.7 thou/uL (4.8-10.8)
[2018-03-02 02:00] LABS: ALT (SGPT) 15 U/L (8-55); AST (SGOT) 32 U/L (5-34); Albumin 2.7 g/dL (3.4-4.8); Alkaline Phosphatase 196 U/L (40-150); Anion Gap 8 mmol/L (10-20); BUN (Urea Nitrogen) 10 mg/dL (9.8-20.1); Bilirubin, Total 0.9 mg/dL (0.2-1.2); Calc. Creatinine Clearance 0 mL/min (70-130); Calcium 8.6 mg/dL (7.8-10.44); Carbon Dioxide 30 mmol/L (23-31); Chloride 103 mmol/L (98-107); Estimated GFR-MDRD 76; Glucose 246 mg/dL (83-110); Potassium 3.8 mmol/L (3.5-5.1); Protein, Total 5.7 g/dL (6.0-8.3); Sodium 137 mmol/L (136-145)
[2018-03-02 02:04] LABS: CKMB 0.5 ng/mL (0-6.6); Troponin I Less than 0.010 ng/mL (< 0.028)
[2018-03-02 02:18] LABS: Bilirubin Negative (Negative); Blood, Urine Negative (Negative); Clarity CLEAR (Clear); Glucose, Urine (Dipstick) Negative (Negative); Leukocyte Small (Negative); Nitrite Negative (Negative); Protein, Urine (Dipstick) Negative (Neg-Trace); Specific Gravity, Urine 1.022 (1.002-1.036); pH, Urine 5.5 (5.0-9.0)
[2018-03-02 02:21] LABS: Bacteria/HPF None Seen HPF (None Seen); Hyaline Casts/LPF 0-3 HYALINE CAST LPF (0-3 Hyaline); Pathc Cast-AUWi Flag 0.58 (0-2.49); RBC/HPF 0-3 HPF (0-3)
[2018-03-02] MEDS ORDERED: diphenhydrAMINE 50 MG/ML VIAL ONE (02:33)
[2018-03-02] MEDS ORDERED: methylPREDNISolone Sod Succ/PF 125 MG/2 ML VIAL ONE ×2 (02:33→04:26)
[2018-03-02] MEDS ORDERED: Famotidine 20 MG TAB ONE (02:33)
[2018-03-02] MEDS ORDERED: Lorazepam 2 MG/ML VIAL ONE (03:00)
[2018-03-02] MEDS ORDERED: Ibuprofen 800 MG TAB ONE (03:56)
[2018-03-02] MEDS ORDERED: Bupivacaine 0.5% 10 ML VIAL ONE (03:56)
[2018-03-02] MEDS ORDERED: Magnesium Sulfate 2 GM/100 ML BAG ONE (04:26)
[2018-03-02] MEDS ORDERED: Ondansetron HCl/PF 4 MG/2 ML Vial IVP PRN (05:38)
[2018-03-02] MEDS ORDERED: Dextrose 50% Abboject 50 ML SYRINGE SLOW IVP PRN (05:38)
[2018-03-02] MEDS ORDERED: Ondansetron ODT 4 MG TAB PO PRN (05:38)
[2018-03-02] MEDS ORDERED: Dextrose 5% in Water 1,000 ML IV PRN (05:38)
[2018-03-02] MEDS ORDERED: Insulin Regular 300 UNITS/3 ML VIAL SC PRN (05:38)
[2018-03-02] MEDS ORDERED: Senokot 8.6 MG TAB PO PRN (05:38)
--- NOTE | 2018-03-02 06:07 | HP ---
DATE OF ADMISSION: 03/02/2018 PRIMARY CARE PHYSICIAN: Patient is under the care of Dr. Marrufo at [facility]. CHIEF COMPLAINT: Shortness of breath, chest pain with low-grade fever. HISTORY OF PRESENT ILLNESS: Patient is a 72-year-old female with cirrhosis, diabetes mellitus type 2 , coronary artery disease status post stent placement, hypertension with recent right femur surgery, presented to the emergency room from [facility] with chest pain. The patient was d ischarged from this facility 3 weeks ago after a ground-level fall causing right femur intertrochante nabila fracture requiring right femur IM nail on 02/07/[address] Aj. She is currently residing at [facility]. She had some chest discomfort while she was sitting up in her bed. The chest pain was worse with breathing. Per prison record her temperature was 99.9 with dim inished air entry in the left lower lobe. She also had some nonproductive cough. She is currently o n 1-1/2 liter oxygen at [facility]. Please note that I was unable to get any information from the patient at this time. The patient is r esponding only to painful stimuli. She has extreme claustrophobia and required 2 mg Ativan in the em ergency room. She also had complained of right hip pain earlier. PAST MEDICAL HISTORY: 1. Cirrhosis of the liver with ascites. 2. COPD. 3. Coronary artery disease, status post stent placement. 4. Diabetes mellitus type 2. 5. Hypertension. 6. Hyperlipidemia. 7. Osteoporosis. 8. History of cerebrovascular accident. 9. History of aspiration pneumonia with fungemia in the past. 10. Anxiety and depression. 11. Fibromyalgia. 12. Physical deconditioning. PAST SURGICAL HISTORY: 1. Recent right femur surgery. 2. Neck surgery. 3. Right ankle surgery. 4. Cardiac catheterization with stent placement. 5. Cholecystectomy. 6. Hysterectomy. ALLERGIES: The patient is allergic to several medications including ALBUTEROL, BARIUM, TYLENOL, IODI NE, and PHENERGAN. CURRENT MEDICATIONS: At the prison; carvedilol 3.125 twice a day, dicyclomine 10 mg twice a da y, ferrous sulfate 325 mg once a day, Lasix 40 mg daily, [place] as needed, Imdur 30 mg daily, Lantus 5 0 units at bedtime and 14 units daily, Lexapro 10 mg daily, MiraLax 17 grams daily, NovoLog insulin s liding scale, potassium chloride 10 mEq at bedtime 20 mEq daily, Protonix 40 mg daily, quinine 324 mg daily, Spiriva daily, tramadol as needed, baclofen 5 mg twice a day, Zofran as needed. SOCIAL HISTORY: The patient is currently at [facility]. There is no history of to bacco, alcohol or drug use. She is full code. She makes her own on decision with the help of her Shreya reeves per prison record. REVIEW OF SYSTEMS: Cannot be reliably obtained from the patient due to current cognitive status. PHYSICAL EXAMINATION: VITAL SIGNS: Temperature 98.7, respirations 20, pulse rate of 80, blood pressure 145/61 with O2 satu ration 95% on 2 liter nasal cannula. GENERAL: A 72-year-old female, somnolent. Responding only to painful stimuli after 2 mg Ativan for claustrophobia in the emergency room. HEENT: Head atraumatic, normocephalic. Pupils were 4 mm, reacting to light. NECK: Supple, no JVD appreciated. No carotid bruit. LUNGS: Showed diminished air entry at bases. HEART: S1, S2 present. Regular rate and rhythm. No murmur, rubs, or gallops appreciated. ABDOMEN: Soft, distended, no guarding, rigidity. Bowel sounds present. EXTREMITIES: A 2+ pitting edema in bilateral lower extremities. SKIN: Warm and dry. LYMPH NODES: No palpable lymph nodes in the neck. PERIPHERAL VASCULAR: Radial pulses palpable bilaterally. MUSCULOSKELETAL: No joint swelling or tenderness. NEUROLOGIC/PSYCHIATRIC: Could not be done due to current cognitive status. LABORATORY FINDINGS: CBC showed WBC of 2.7 with hemoglobin 11.9, hematocrit 35.1 with platelet 141. D-dimer was 5.51. Chemistries showed sodium 137, potassium 3.8, chloride 103, bicarbonate 30, BUN o f 10, creatinine 0.75, albumin 2.7, total protein 5.7. Urinalysis showed 7-10 wbc's without bacteria . Chest x-ray by my review was negative for infiltrate. CT angiogram of the chest by my review showed possible pneumonia. EKG by my review showed normal sin us rhythm with incomplete right bundle-branch block. IMPRESSION: 1. Low-grade fever with shortness of breath and chest discomfort. CT angiogram of the chest showed possible pneumonia suspected pneumococcal, although aspiration pneumonia is also a possibility. Othe r possibilities include spontaneous bacterial peritonitis. She also has urinary tract infection. Ur ine cultures have been sent. We will add blood cultures. We will start empiric antibiotics. We ellyn l consult Infectious Disease, Dr. Tesfaye due to history of cirrhosis and fungemia in the past. 2. Recent ground-level fall with right femur intertrochanteric fracture requiring surgical intervent ion. 3. Elevated D-dimer with negative CT angiogram of the chest for pulmonary embolism. 4. 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 5. Diabetes mellitus type 2. We will start her on insulin sliding scale with Levemir. 6. Encephalopathy at this time secondary to Ativan which she received for claustrophobia in the [facility] room. 7. Coronary artery disease. We will resume Imdur and carvedilol once able to take p.o. 8. Anxiety and depression/fibromyalgia. We will continue her home medications once able to take p.o . 9. Chronic obstructive pulmonary disease. We will continue her home regimen with nebulizer treatmen ts. 10. Hypertension. We will continue carvedilol. 11. We will discuss the plan of care with the family when they arrive.
[2018-03-02] MEDS: cefTRIAXone\\ROCEPHIN 2 GM in Sodium Chloride 0.9% 100 ML IVPB SCH (07:26)
--- NOTE | 2018-03-02 07:32 | RAD ---
CHEST 1 VIEW: COMPARISON: Fever and shortness of breath. COMPARISON: 02/06/18. FINDINGS: There is atherosclerosis of the aorta. Heart size is upper normal. Pulmonary vessels are within nor mal limits. Chronic interstitial changes are suspected. Superimposed edema or infiltrate cannot be excluded. No significant pleural fluid. Stable calcified granulomata of the right lung base. No pn eumothorax. There is diffuse bone demineralization. IMPRESSION: 1. Atherosclerosis. 2. Interstitial prominence likely due to chronic change. Superimposed edema or infiltrate cannot be excluded. Continued surveillance to ensure resolution. POS: PPP
[2018-03-02 07:39] VITALS: BMI 32.7
--- NOTE | 2018-03-02 07:43 | PDOC.PN ---
- Subjective Encounter Start Date: 03/02/18 Encounter Start Time: 07:41 Subjective: sound asleep - Objective Resuscitation Status: Resuscitation Status FULL:Full Resuscitation MAR Reviewed: Yes Vital Signs & Weight: Vital Signs (12 hours) Temp Pulse Resp BP Pulse Ox 03/02/18 07:39 98 F 86 18 157/79 H 99 03/02/18 05:48 98.3 F 81 16 151/85 H 93 L Weight Weight 202 lb 11.2 oz Result Diagrams: 03/02/18 01:37 03/02/18 01:37 Additional Labs: Accuchecks 03/02/18 05:57 POC Glucose 149 H Phys Exam - Physical Examination Neck: no JVD Respiratory: clear to auscultation bilateral Cardiovascular: RRR, no significant murmur Gastrointestinal: soft, positive bowel sounds Musculoskeletal: edema present Dx/Plan (1) CAD (coronary artery disease) Code(s): I25.10 - ATHSCL HEART DISEASE OF [place] CORONARY ARTERY W/O ANG PCTRS Status: Acute Qualifiers: Coronary Disease-Associated Artery/Lesion type: [place] artery [place] vs. transplanted heart: [place] heart Associated angina: angina presence unspecified Qualified Code(s): I25.10 - Atherosclerotic heart disease of [place] coronary artery without angina pectoris (2) DM type 2 (diabetes mellitus, type 2) Status: Acute Qualifiers: Diabetes mellitus terminal operator insulin use: with terminal operator use Diabetes mellitus complication status: without complication Qualified Code(s): E11.9 - Type 2 diabetes mellitus without complications; Z79.4 - USP (current) use of insulin; Z79.4 - USP (current) use of insulin; Z79.4 - buttermilk drier operator ( current) use of insulin; Z79.4 - USP (current) use of insulin (3) Cirrhosis of liver not due to alcohol Status: Chronic (4) COPD (chronic obstructive pulmonary disease) Status: Chronic Qualifiers: Emphysema type: unspecified - Plan sedated, recieved 2 mg ativan in ED, will check ABG, ammonia levl -: CT evidense for PNA, leukopenic, Blood C&S pending, on IV antibx * .
[2018-03-02 08:07] LABS: Troponin I Less than 0.010 ng/mL (< 0.028)
[2018-03-02] MEDS: Insulin Regular 300 UNITS/3 ML VIAL SC PRN ×3 (09:00→17:31)
[2018-03-02 09:19] LABS: Actual Bicarbonate (HCO3a) 32.4 mEq/L (22-26); Base Excess (BEa) 6.1 mEq/L (0 (+/-) 2.5); CO2 Tension 55.1 mmHg (35.0-45.0); O2 Tension (PaO2) 104.6 mmHg (80.0-100.0); pH, Arterial 7.39 (7.35-7.45)
[2018-03-02 09:20] LABS: Calcium, Ionized 1.3 mmol/L (1.12-1.30); Hematocrit-ABG 34.4 % (36.0-47.0); Hemoglobin (Hb) 11.3 g/dL (12.0-16.0)
[2018-03-02 09:21] LABS: ALV-art Gradient 26.165 (0-20)
--- NOTE | 2018-03-02 09:40 | CT ---
PRELIMINARY REPORT/[facility]/EMERGENTY AFTER-HOURS PROCEDURE CT Angiography Chest With Intravenous Contrast CLINICAL HISTORY: 72 years old, female; Signs and symptoms; Shortness of breath; Patient HX: Er 6; 72 yo f. Pt presents for initially reports SOB and pain through chest with persistent cough associated. States when episo de occurred was laying in bed trying to get comfortable with report of her right leg hurting, with ch ronic ble pain and edema with HX of chf. Pt states that she has improved since being placed on o2. Pt also reports that she has had cough and congestion with report of fever though the week. Pt also not es that she had orthopedic SX x3 weeks ago and since has had 2 dopplers to R/O dvt. TECHNIQUE: Axial computed tomographic angiography images of the chest with intravenous contrast using pulmonary embolism protocol. MIP reconstructed images were created and reviewed. COMPARISON: No relevant prior studies available. FINDINGS: Pulmonary arteries: No pulmonary embolism. Main pulmonary artery is mildly enlarged, measuring 38 mm in diameter, compatible with pulmonary arterial hypertension. Aorta: Atherosclerotic disease of the thoracic aorta, without aneurysm or dissection. Lungs: Mild bilateral upper and lower lobe scattered ground glass opacities, possibly pneumonitis or hydrostatic pulmonary edema. Calcified granuloma within the right lower lobe. Pleural space: Small bilateral pleural effusions, right larger than left, with associated atelectasis . No pneumothorax. Heart: Mild four-chamber cardiac enlargement. Moderate three-vessel coronary artery atherosclerotic c alcification. Mediastinum: Tracheobronchomalacia. Bones/joints: No acute fracture. No dislocation. Soft tissues: Normal. Lymph nodes: Normal. Liver: Nodular hepatic peripheral contour, compatible cirrhosis. Gallbladder and bile ducts: Gallbladder is surgically absent. Spleen: Splenomegaly. Intraperitoneal space: Ascites, secondary to cirrhosis. Multiple intraperitoneal varices. IMPRESSION: 1. No pulmonary embolism. 2. Mild hydrostatic pulmonary edema, with small bilateral pleural effusions. 3. Tracheobronchomalacia. 4. Cirrhosis, with associated ascites and splenomegaly. Thank you for allowing us to participate in the care of your patient. Dictated and Authenticated by: Lokesh Carmona MD 03/02/2018 3:48 AM Central Time ([place] & [place]) FINAL REPORT CT ANGIOGRAM OF THE CHEST: HISTORY: Shortness of breath. Chest pain. COMPARISON: None. TECHNIQUE: CT angiogram of the chest is performed in the axial plane. Three-dimensional reformatted images are submitted for interpretation. FINDINGS: This report is in agreement with the preliminary report by [facility]. No evidence of pulmonary artery embo lism to the level of the segmental arteries. There is mild central pulmonary artery prominence sugge sting pulmonary arterial hypertension. There are scattered ground-glass opacities throughout the rica g parenchyma which may be due to edema or pneumonitis. Bilateral pleural effusions are identified wi th associated atelectasis. Sclerotic change of the liver with varices is noted. There is evidence o f tracheobronchial malacia. POS: PPP
[2018-03-02] MEDS: Famotidine 20 MG TAB PO SCH ×2 (10:35→20:03)
[2018-03-02] MEDS: Carvedilol 3.125 MG TAB PO SCH ×2 (10:35→17:39)
[2018-03-02] MEDS: Docusate 100 MG CAP PO SCH ×2 (10:35→20:03)
[2018-03-02] MEDS ORDERED: ISOVUE-370 76%-LOCM 1 ML ONE (11:05)
--- NOTE | 2018-03-02 14:22 | CON ---
DATE OF CONSULTATION: 03/02/2018 REASON FOR CONSULTATION: Possible infection. HISTORY OF PRESENT ILLNESS: A 72-year-old patient who has a history of COPD, coronary artery disease with prior stenting, type 2 diabetes, hypertension, osteoporosis, and prior CVA and liver cirrhosis, probably secondary to steatohepatitis who was recently admitted after a right intertrochanteric femu r fracture which required fixation with a nail on 01/[address] Aj. She was then transferred to [facility] for rehab medicine and on the day of admission, the nursing staff noticed the patient w as tachypneic, complaining of dyspnea with chest pain for breathing. Her vital signs showed a pulse of 82, and O2 sats were 95% on room air, BP was 140/70, temperature was 99.5. They gave her oxygen s upplementation and transferred the patient to the hospital. On arrival, the vital signs showed BP 14 0/60, pulse 80, respirations 20, temperature 98.7, O2 sats were 95%. The main concern initially was pulmonary embolism, which was ruled out by CT scan of the chest with angiogram. The CT of the chest showed some abnormalities including a hazy infiltrate which has a very symmetric distribution, right and left hemithorax and affects upper and lower lobes. The patient was admitted. The initial impres saira was possibility of aspiration pneumonia, UTI, and so on. Currently, Ms. Aguirre is quite sedated. She was given Ativan twice recently and still sedated from the medication most likely. She could no t reply to questions. She was having no headaches, a little bit of cough in the detention. Here, she has had no diarrhea, no seizure activity noted there in the detention or here. PAST MEDICAL HISTORY: Includes cirrhosis of liver, likely from steatohepatitis. She has evidence of portal hypertension, pancytopenia and ascites. History of chronic obstructive pulmonary disease and coronary disease, type 2 diabetes, hypertension, hyperlipidemia, osteoporosis, and there is a histor y of pneumonia and fungemia in the past. I could not find any reports related to that in the record in this hospital. PAST SURGICAL HISTORY: Right femur reduction surgery with fixation, neck surgery, right ankle fixati on, cardiac catheterization with stent placement, cholecystectomy, hysterectomy. ALLERGIES: ALBUTEROL, BARIUM, TYLENOL, IODINE, PHENERGAN. CURRENT MEDICATIONS: Coreg, ceftriaxone, Colace, Pepcid, glucagon, insulin, Imdur, Zofran, Senokot. FAMILY HISTORY: Noncontributory. SOCIAL HISTORY: She has no history of smoking and is currently at a detention. PHYSICAL EXAMINATION: VITAL SIGNS: T-max 98.6, blood pressure 160/72, pulse 94, respirations 18. SKIN: Examination shows the surgical site in the hip with no evidence of inflammatory changes. The patient is voiding spontaneously. She has a peripheral IV access. No lymphadenopathy. HEENT: Ocular movements are conjugate. She does not establish eye contact. Pupils are reactive abo ut they react all the way from 4 mm down to 1 mm symmetrically right and left side. She has a few na tive teeth in place with significant decay. NECK: Supple, no jugular vein distention. LUNGS: With symmetric air entry with a few basilar crackles which are symmetrically distributed. No wheezing. HEART: Diminished heart sounds. S1, S2, without murmurs. No S3, S4. ABDOMEN: Soft, not distended or tender. No ascites. No bladder distention. EXTREMITIES: The pulses are 1+ and dorsalis pedis. She seems to have a little bit of antalgic postu ring related to her extremity which had a fracture probably from pain. Plantar responses are flexure . Cap refill is normal. NEUROLOGIC: She is obtunded, does not establish eye contact with examiner, does not answer questions or follow commands. LABORATORY DATA: Sodium 137, creatinine 0.75, glucose 246. Liver profile normal, alkaline phosphata se 196, albumin 2.7. White cell count 2.7, hemoglobin 11.9, platelets 141 with normal differential. Monocytes 12.4. Urinalysis with 7-10 WBCs. Microbiology data: We have blood and urine cultures pe nding at this time. The CT of chest showed mild central pulmonary artery prominence suggesting pulmo nary arterial hypertension, ground-glass opacities throughout lung parenchyma, both right and left si de. ASSESSMENT: 1. Type 2 diabetes, history of liver disease with cirrhosis and portal hypertension, likely due to s teatohepatitis, recent fracture of femur with reduction and fixation. 2. Dyspnea with the bilateral pulmonary infiltrates on CT scan with negative angiograms. DISCUSSION: The differential diagnosis includes pulmonary edema associated with cardiomyopathy or he patopulmonary syndrome in view of her liver disease history. An infection is less likely, although n ot completely ruled out. She does not have a left shift in the neutrophil percentages. We will cont inue monitoring cultures. Continue Rocephin for now. If the cultures turn all negative, I would dis continue antimicrobials, consider echocardiogram and we will check a brain natriuretic peptide.
--- NOTE | 2018-03-02 15:24 | PDOC.EVN ---
Event Note - Event Note Event Note: still verty sedated from iv ativan in ed. will monitor overnite, hopefully she will be alrt in AM
[2018-03-03] MEDS ORDERED: Ibuprofen 200 MG TAB PO PRN (03:54)
[2018-03-03 04:36] LABS: #Eosinphils 0.1 thou/uL (0.0-0.7); #Lymphocytes 0.8 thou/uL (1.20-3.40); #Monocytes 0.3 thou/uL (0.11-0.59); #Neutrophils 2.1 thou/uL (1.40-6.50); %Basophils 0.4 % (0.0-1.0); %Eosinophils 1.5 % (0.0-10.0); %Monocytes 9.9 % (0.0-10.0); %Neutrophils 64.3 % (42.0-75.0); Hemoglobin 11.7 g/dL (12.0-16.0); Mean Corpuscular HGB CONC 33.3 g/dL (32.0-36.0); Mean Corpuscular Hemoglobin 34.3 pg (27.0-31.0); Mean Platelet Volume 7.4 fL (7.4-10.4); Platelet Count 139 thou/uL (130-400); RBC Distribution Width 13.2 % (11.5-14.5); Red Blood Cell (RBC) Count 3.42 mill/uL (4.20-5.40); White Blood Cell (WBC) Count 3.3 thou/uL (4.8-10.8)
[2018-03-03 04:51] LABS: ALT (SGPT) 14 U/L (8-55); AST (SGOT) 25 U/L (5-34); Albumin 2.7 g/dL (3.4-4.8); Alkaline Phosphatase 165 U/L (40-150); Anion Gap 7 mmol/L (10-20); BUN (Urea Nitrogen) 13 mg/dL (9.8-20.1); Bilirubin, Total 0.9 mg/dL (0.2-1.2); Calc. Creatinine Clearance 115 mL/min (70-130); Calcium 8.9 mg/dL (7.8-10.44); Carbon Dioxide 33 mmol/L (23-31); Chloride 104 mmol/L (98-107); Estimated GFR-MDRD Greater than 90; Globulin 2.6 g/dL (2.4-3.5); Glucose 120 mg/dL (83-110); Potassium 3.7 mmol/L (3.5-5.1); Protein, Total 5.3 g/dL (6.0-8.3); Sodium 140 mmol/L (136-145)
[2018-03-03] MEDS: cefTRIAXone\\ROCEPHIN 2 GM in Sodium Chloride 0.9% 100 ML IVPB SCH (05:38)
[2018-03-03] MEDS: Docusate 100 MG CAP PO SCH (09:13)
[2018-03-03] MEDS: Carvedilol 3.125 MG TAB PO SCH (09:13)
[2018-03-03] MEDS: Famotidine 20 MG TAB PO SCH (09:14)
--- NOTE | 2018-03-03 10:17 | DIS ---
TRANSFER OF CARE NOTE PRIMARY CARE PROVIDER: Dr. Ricky Hayes The patient is being discharged back to [facility]. FINAL DIAGNOSES: 1. Atypical chest pain. 2. Coronary artery disease. 3. Diabetes mellitus type 2. 4. Nonalcoholic cirrhosis of the liver. 5. Chronic obstructive pulmonary disease. DISCHARGE MEDICATIONS: Same as her home medicines, MiraLax 17 grams daily, Protonix 40 mg a day, det lisa insulin 14 units in the morning, Vicoprofen one every 8 hours p.r.n., Lasix 40 mg a day, enoxapa rin 40 mg subcutaneously daily, ferrous sulfate 65 mg a day, dicyclomine 10 mg twice a day, Coreg 3.1 25 mg twice a day, lactulose p.r.n., isosorbide 30 mg a day, insulin by sliding scale, potassium 10 m Eq a day in the evening and 20 in the morning, tramadol 50 mg p.o. q.6h. p.r.n., quinine 324 mg at be dtime. ALLERGIES: ALBUTEROL, BARIUM SULFATE, TYLENOL, IODINE CONTAINING PRODUCTS, PHENERGAN. PENDING AT TIME OF DISCHARGE: Cultures negative to date. HOSPITAL COURSE: The patient was seen in [facility] after transfer from [facility] or shortness of breath and chest pain. The patient was given 2 mg of Ativan and remained sedated dur ing the day. Chest x-ray was unrevealing for CHF, infiltrate. Did have chronic changes. CT scan wa s done for pulmonary emboli which failed to demonstrate any pulmonary emboli. She had atherosclerosi s of the aorta, scattered ground glass changes. LABORATORY: Urine showed a few white cells with small esterase and negative nitrite. Blood gas pH 7 .39, CO2 55, O2 105. Chemistries: Blood sugar was 246. Alkaline phosphatase 196. The remainder of her comp metabolic profile was normal. Cardiac enzymes were normal. Blood sugars remained in the 1 00-200 range during her hospital stay. EKG reveals normal sinus rhythm with no acute ST-T changes. Her D-dimer was elevated at 5.5 with marcos dence for pulmonary emboli. This morning, the patient is awake and alert. She has no complaints except for her chronic leg pains . I see no evidence for acute problems at this point. She is being transferred back to [facility] under Dr. Ricky Hayes's care. CONSULTATIONS: No consultations were obtained. PROCEDURES: No procedures were done.
[2018-03-03 12:22] VITALS: BP 120/54; TEMP 98.1
== END 2018-03-03 13:03 ==
LOC: ERS 00:54 → 2SE 03:45
PROVIDERS: ADMIT Internal Medicine; ATTEND Internal Medicine
DX: R07.89 Other chest pain (principal); R06.02 Shortness of breath; I25.10 Atherosclerotic heart disease of native coronary artery without angina pectoris; I10 Essential (primary) hypertension; E78.5 Hyperlipidemia, unspecified; J44.9 Chronic obstructive pulmonary disease, unspecified; E11.9 Type 2 diabetes mellitus without complications; M81.0 Age-related osteoporosis without current pathological fracture; K76.6 Portal hypertension; K74.60 Unspecified cirrhosis of liver; F32.9 Major depressive disorder, single episode, unspecified; F41.9 Anxiety disorder, unspecified; Z95.5 Presence of coronary angioplasty implant and graft; Z91.041 Radiographic dye allergy status; Z88.8 Allergy status to other drugs, medicaments and biological substances; Z79.4 Long term (current) use of insulin; Z79.51 Long term (current) use of inhaled steroids; Z79.899 Other long term (current) drug therapy
CPT/HCPCS: 71045; 71275; 80053 ×2; 82140; 82553; 82805; 82962 ×2; 83735; 83880; 84484 ×2; 85025 ×2; 85379; 86140; 87040; 87086; 93005; 96374; 96375; 99285; G0378; G8978; G8979; 36415; 36416; 81003; 81015; J0696; J1200; J1815; J2060; J2930; J3475; J3490; J7050

== ENCOUNTER 2018-04-07 19:34 | Emergency (ER) | payer MEDICARE ==
--- NOTE | 2018-04-07 21:08 | RAD ---
TWO VIEWS OF THE RIGHT HIP 04/07/18 COMPARISON: None. HISTORY: Pain, prior surgery. FINDINGS: There is a short intramedullary kerwin within the proximal right femur with a distal interlocking screw and a nail traversing the right femoral neck. No evidence for hardware failure. No acute fracture or dislocation. IMPRESSION: Postoperative changes as above. POS: ZION
--- NOTE | 2018-04-07 21:09 | RAD ---
FRONTAL RADIOGRAPH CHEST 04/07/18 COMPARISON: 03/02/18 HISTORY: Pain, cough. FINDINGS: Mild perihilar interstitial prominence noted extending into both lung bases, not significantly change d. Incompletely imaged cervical spine hardware is present. There is no pneumothorax, pleural fluid, f ocal consolidation or alveolar edema. IMPRESSION: Stable appearance of the chest. POS: [facility]
[2018-04-07 22:35] LABS: Bilirubin Small (Negative); Blood, Urine Negative (Negative); Clarity CLEAR (Clear); Glucose, Urine (Dipstick) Negative (Negative); Leukocyte Negative (Negative); Nitrite Negative (Negative); Protein, Urine (Dipstick) Negative (Neg-Trace); Specific Gravity, Urine 1.026 (1.002-1.036); pH, Urine 5.5 (5.0-9.0)
== END 2018-04-07 23:08 | disposition home or self-care (01) ==
LOC: ERS 19:34
DX: J20.9 Acute bronchitis, unspecified (principal); M25.551 Pain in right hip; I50.9 Heart failure, unspecified; E11.9 Type 2 diabetes mellitus without complications; F41.9 Anxiety disorder, unspecified; Z87.891 Personal history of nicotine dependence; Z79.4 Long term (current) use of insulin; Z79.899 Other long term (current) drug therapy; J44.9 Chronic obstructive pulmonary disease, unspecified; F32.9 Major depressive disorder, single episode, unspecified
CPT/HCPCS: 51701; 71045; 81003; 87086; A4353

== ENCOUNTER 2018-05-02 21:03 | Inpatient (IN) | payer MEDICARE, MEDICAID ==
[2018-05-02 21:59] LABS: #Eosinphils 0.1 thou/uL (0.0-0.7); #Lymphocytes 0.9 thou/uL (1.20-3.40); #Monocytes 0.5 thou/uL (0.11-0.59); #Neutrophils 1.9 thou/uL (1.40-6.50); %Basophils 0.5 % (0.0-1.0); %Eosinophils 2.2 % (0.0-10.0); %Lymphocytes 26.2 % (21.0-51.0); %Monocytes 14.1 % (0.0-10.0); %Neutrophils 57.1 % (42.0-75.0); Hemoglobin 12.6 g/dL (12.0-16.0); Mean Corpuscular HGB CONC 34.3 g/dL (32.0-36.0); Mean Corpuscular Hemoglobin 33.8 pg (27.0-31.0); Mean Corpuscular Volume 98.3 fL (78.0-98.0); Mean Platelet Volume 7.5 fL (7.4-10.4); Platelet Count 131 thou/uL (130-400); RBC Distribution Width 13.3 % (11.5-14.5); Red Blood Cell (RBC) Count 3.74 mill/uL (4.20-5.40); White Blood Cell (WBC) Count 3.4 thou/uL (4.8-10.8)
[2018-05-02 22:21] LABS: ALT (SGPT) 25 U/L (8-55); AST (SGOT) 47 U/L (5-34); Alkaline Phosphatase 213 U/L (40-150); Anion Gap 9 mmol/L (10-20); BUN (Urea Nitrogen) 20 mg/dL (9.8-20.1); Bilirubin, Total 0.7 mg/dL (0.2-1.2); Calc. Creatinine Clearance 0 mL/min (70-130); Calcium 8.6 mg/dL (7.8-10.44); Carbon Dioxide 29 mmol/L (23-31); Chloride 106 mmol/L (98-107); Estimated GFR-MDRD 66; Globulin 2.8 g/dL (2.4-3.5); Glucose 102 mg/dL (83-110); Potassium 4.1 mmol/L (3.5-5.1); Protein, Total 5.8 g/dL (6.0-8.3); Sodium 140 mmol/L (136-145)
[2018-05-02 22:34] LABS: Bilirubin Small (Negative); Blood, Urine Negative (Negative); Clarity CLOUDY (Clear); Glucose, Urine (Dipstick) Negative (Negative); Leukocyte Small (Negative); Nitrite Negative (Negative); Protein, Urine (Dipstick) Negative (Neg-Trace); Specific Gravity, Urine 1.021 (1.002-1.036); pH, Urine 5.5 (5.0-9.0)
[2018-05-02 22:36] LABS: Bacteria/HPF Rare-Few HPF (None Seen); RBC/HPF 0-3 HPF (0-3)
[2018-05-02 22:37] LABS: Hyaline Casts/LPF 0-3 HYALINE CAST LPF (0-3 Hyaline); Pathc Cast-AUWi Flag 2.61 (0-2.49)
--- NOTE | 2018-05-02 22:47 | RAD ---
PORTABLE UPRIGHT FRONTAL CHEST RADIOGRAPH: 05/02/18 COMPARISON: 04/07/18 HISTORY: Right upper quadrant pain, right lower quadrant pain, shortness of breath and dyspnea. FINDINGS: Mild increased linear interstitial density in the perihilar regions and both lung bases. No pneumotho rax, pleural fluid focal consolidation or alveolar edema. There is incompletely imaged postsurgical h ardware within the cervical spine. There is a mild area of asymmetric increased density in the left lung base, nonspecific. Recommend fo llowup PA and lateral chest imaging for full assessment. IMPRESSION: No lobar consolidation or alveolar edema. Mild increased linear density in the left base, for which n onemergent followup PA and lateral chest imaging advised. POS: ZION
[2018-05-02 23:33] LABS: CKMB 1.2 ng/mL (0-6.6); Troponin I Less than 0.010 ng/mL (< 0.028)
[2018-05-02] MEDS ORDERED: Lorazepam 2 MG/ML VIAL ONE (23:39)
[2018-05-03] MEDS ORDERED: Dextrose 50% Abboject 50 ML SYRINGE ONE (02:39)
[2018-05-03 04:48] VITALS: BMI 38.6
[2018-05-03] MEDS ORDERED: Prevnar 13-Val Conj/PF 0.5 ML SYRINGE IM ONE (09:00)
--- NOTE | 2018-05-03 09:27 | CT ---
PRELIMINARY REPORT/[facility]/EMERGENCY AFTER HOURS PROCEDURE: EXAM: CT Abdomen and Pelvis Without Intravenous Contrast EXAM DATE/TIME: 05/03/2018 12:00 AM CLINICAL HISTORY: 73 years old, female; Pain; Abdominal pain; Generalized; Patient HX: 73f presents via ems for the krish luation of shortness of breath and abdominal distention. Patient reports 42 lb weight gain since apri l. Reports diffuse abdominal tightness, and 9 lb weight gain since yesterday. Patient reports HX of c hf. Denies cough. Denies fever and chills. Found to by hypoxic today in the ed, only uses home o2 occ asionally. Patient passing gas, and having daily bms. TECHNIQUE: Axial computed tomography images of the abdomen and pelvis without intravenous contrast. Coronal refo rmatted images were created and reviewed. COMPARISON: No relevant prior studies available. FINDINGS: Limited evaluation without enteric or IV contrast. Lung bases are unremarkable aside from small left pleural effusion and right basilar granuloma. Old r ight rib fractures are demonstrated. Liver appears cirrhotic with nodular contours. Spleen is enlarged. Large volume ascites fluid is pres ent. Pancreas appears relatively atrophic. No mass or duct dilatation. Gallbladder is surgically abse nt. The adrenals and kidneys are unremarkable. No evidence of bowel obstruction or pneumoperitoneum. No dilatation of the abdominal aorta. PELVIS: Diverticular changes are seen in the colon without inflammation. Appendix is normal and airfilled. Bladder is unremarkable. Diffuse body wall edema is present. Hardware is present in the proximal righ t femur. IMPRESSION: Cirrhosis, splenomegaly, large volume ascites and diffuse body wall edema. Nonspecific small left pleural effusion. Colonic diverticular change without evidence of diverticulitis Thank you for allowing us to participate in the care of your patient. Dictated and Authenticated by: Jaxson Jackson MD 05/03/2018 12:55 AM Central Time ([place] & [place]) FINAL REPORT NONCONTRAST ENHANCED CT IMAGES OF ABDOMEN AND PELVIS: Date: 05/02/18 HISTORY: 73-year-old who is being evaluated for abdominal pain. Exam is limited due to the fact that IV and oral contrast were not given. The does decrease the sensi tivity for detection of pathology. FINDINGS: I concur with the dictation from [facility]. There is a large amount of ascites. A small left- sided pleural effusion is seen. Mitral valvular calcifications seen. There is marked nodularity and cirrhotic changes of the liver. Splenomegaly seen. Atrophy of the panc reas is seen. Numerous colonic diverticula are parent. No evidence of free intraperitoneal air seen. Edema is seen in the subcutaneous fat, compatible with changes seen in anasarca. POS: [facility]
[2018-05-03] MEDS ORDERED: Calcium Carbonate 500 MG ChewTAB PO PRN (10:23)
[2018-05-03] MEDS ORDERED: Dextromethorphan Polistirex 30 MG/5 ML (89 ML BOTTLE) PO PRN (10:23)
[2018-05-03] MEDS ORDERED: Non-Formulary Item 1 EACH (Ondansetron Hcl [Zofran] 8 MG) SL PRN (10:23)
[2018-05-03] MEDS ORDERED: Non-Formulary Item 1 EACH (Hydroxyzine Hcl [Hydroxyzine Hcl] 50 MG) PO PRN (10:23)
[2018-05-03] MEDS ORDERED: Dextrose 50% Abboject 50 ML SYRINGE SLOW IVP PRN (10:25)
[2018-05-03] MEDS ORDERED: Dextrose 5% in Water 1,000 ML IV PRN (10:25)
[2018-05-03] MEDS ORDERED: Bisacodyl 5 MG TAB PO PRN (10:25)
--- NOTE | 2018-05-03 11:39 | HP ---
PRIMARY CARE PROVIDER: Janice Marrufo M.D CHIEF COMPLAINT: Shortness of breath. HISTORY OF PRESENT ILLNESS: Ms. Aguirre is a pleasant 73-year-old lady, who was seen at [facility] following transfer from her residential facility on 05/03/2018. She reportedly has been gaining weight. She reports abdominal distention, worsening over the last 2 weeks. She reports 42 pound weight gain since 01/2018. She also reports shortness of breath when ly ing down as well as with exertion. She reports diffuse abdominal tightness. She denies any fevers o r chills. She denies any nausea or vomiting. She was reportedly hypoxic when she was seen by EMS. The patient is able to provide some history. Collateral history was obtained from review of medical records as well as discussion with the emergency room physician. REVIEW OF SYSTEMS: All other systems reviewed and found to be negative. PAST MEDICAL HISTORY: Cirrhosis of the liver with ascites, COPD, coronary artery disease, status pos t PCI with stent, diabetes mellitus type 2, hypertension, dyslipidemia, osteoporosis, cerebrovascular accident, aspiration pneumonia with fungemia in the past, anxiety and depression, fibromyalgia, and physical reconditioning. PAST SURGICAL HISTORY: Right femur surgery, neck surgery, right ankle surgery, cardiac catheterizati on with stent placement, cholecystectomy, and hysterectomy. ALLERGIES: ALBUTEROL, BARIUM, TYLENOL, IODINE, and PHENERGAN. CURRENT MEDICATIONS: Tums 1 tablet every 2 hours as needed, Coreg 3.125 mg 2 times a day, Lotrisone cream topically, Delsym p.r.n., dicyclomine 10 mg 2 times a day, Lexapro 10 mg daily, Iron 65 mg sandra y, furosemide 40 mg daily, Vicoprofen p.r.n., hydroxyzine p.r.n., insulin aspart by sliding scale, La ntus insulin 42 units at bedtime and 14 units in the morning, Imdur 30 mg daily, lactulose 30 grams d aily, Zofran p.r.n., Protonix 40 mg daily, MiraLax 17 grams daily, potassium chloride 10 mEq at bedti me and 20 mEq in the morning, Silvadene cream topically, and triamcinolone cream topically. SOCIAL HISTORY: The patient is currently at [facility] facility. She denies any tobacco us e, alcohol use, or recreational drug use. CODE STATUS: She is FULL CODE. FAMILY HISTORY: Multiple family members with liver disease. PHYSICAL EXAMINATION: GENERAL: Ms. Agiurre is awake and alert, not in acute distress. VITAL SIGNS: Blood pressure is 137/61, pulse 75, respiratory rate 16, and she is saturating 99% on r oom air. She is afebrile. EYES: No scleral icterus. No conjunctival pallor. ENT: Moist mucosal membranes, no oropharyngeal erythema or exudates. NECK: Supple, nontender, trachea is midline. RESPIRATORY: Accessory muscles of breathing are not active. Chest wall movements are symmetric bila terally. LUNGS: Clear to auscultation without wheeze, rhonchi, or crepitations. CARDIOVASCULAR: S1 and S2 are heard, regular. Peripheral pulses palpable. No carotid bruit, no per icardial rub. ABDOMEN: Distended, nontender, bowel sounds heard, no hepatomegaly, no splenomegaly, shifting dullne ss present. MUSCULOSKELETAL: Power is 5/5 in all 4 extremities. NEUROLOGIC: Cranial nerves II-XII intact. Deep tendon reflexes are 2+. SKIN: She has a flaky dry skin on her buttocks. EXTREMITIES: She has bilateral lower extremity edema. LYMPHATIC: No cervical lymphadenopathy. PSYCHIATRIC: Normal mood, normal affect, patient is oriented to person and place, not to time. LABORATORY DATA: Ms. Aguirre's labs and investigations were reviewed. I reviewed her electrocardiogram , which shows normal sinus rhythm, no ST changes to suggest an acute coronary syndrome. I also revie wed her chest x-ray, which does not show any pulmonary infiltrates. CT scan of the abdomen and pelvi s showed cirrhosis, splenomegaly, large volume ascites and diffuse body wall edema, nonspecific small left pleural effusion and colonic diverticular change without evidence of diverticulitis. She has l eukopenia with 3400 white cells, of which 57% are neutrophils, normal hemoglobin, normal platelet cou nt, normal electrolytes, normal creatinine, normal total bilirubin, elevated AST of 47, normal ALT, e levated alkaline phosphatase of 213, and decreased albumin of 3.0. Troponin I is normal. BNP is mil dly elevated at 260.8. ASSESSMENT AND PLAN: Ms. Aguirre is a pleasant 73-year-old lady, who was seen at [facility] on 05/03/2018. Her problem list includes: 1. Acute hypoxic respiratory failure: This is most likely secondary to ascitic fluid buildup. She appears to have improved in terms of her oxygenation after coming to the hospital. We will continue her on diuretics for now. 2. Abdominal distention secondary to ascitic fluid buildup. The patient will likely need paracentes is. Gastroenterology Service has been consulted. 3. Diabetes mellitus type 2: Start Accu-Cheks and insulin sliding scale, continue home medications. 4. Coronary artery disease: Appears to be stable. 5. Hypertension: Monitor vital signs, titrate antihypertensives as needed. 6. Congestive heart failure: Continue diuretics. Many thanks for allowing me to participate in your patient's care. Please feel free to contact me wi th any questions or concerns. LEVEL OF RISK: High. LEVEL OF COMPLEXITY: High.
[2018-05-03 12:01] LABS: INR-International Normal Ratio 1.4; PTT 34.9 SEC (22.9-36.1); Prothrombin Time 17.6 SEC (12.0-14.7)
[2018-05-03] MEDS ORDERED: Lidocaine 1% PF 5 ML VIAL ONE (12:36)
--- NOTE | 2018-05-03 15:35 | ULT ---
ULTRASOUND GUIDED PARACENTESIS: History: Ascites. Dyspnea. Technique: Informed consent was obtained. A pocket of fluid was seen in the right peritoneal cavity. The overlyi ng skin was prepped and draped in the usual sterile manner. A 1% Lidocaine solution was used to anest hetize the overlying soft tissues. A small dermatomy was made. A 5 Divehi Yueh needle was placed unde r ultrasound guidance into the right peroneal cavity. A total of 4.9 L of peritoneal fluid removed wi thout difficulty. IMPRESSION: Successful ultrasound guided paracentesis. POS: [facility]
[2018-05-03 17:34] LABS: BF Color Yellow; Body Fluid Source PARACENTESIS FLD; Clarity Cloudy/Turbid (Clear); Tube # EDTA; WBC/NonHematic-Auto 278 /cumm
[2018-05-03 17:35] LABS: BF RBC Count - Manual 760 /cumm
[2018-05-03 18:54] LABS: BF Segmented Neutrophils 2 %; Cell Count Non Hematic 89 %; Lymphocytes 9 %
[2018-05-03] MEDS: Potassium Chloride 10 MEQ TAB PO SCH (20:11)
[2018-05-03] MEDS: Dicyclomine 10 MG CAP PO SCH (20:11)
[2018-05-03] MEDS: Carvedilol 3.125 MG TAB PO SCH (20:11)
[2018-05-03] MEDS: Insulin Glargine 42 UNITS in Pre-Filled Syringe 1 EACH SC SCH (20:53)
[2018-05-03] MEDS ORDERED: INSULIN GLARGINE HUM REC ANLOG 42 UNIT SQ SCH (21:00)
[2018-05-03] MEDS: hydrOXYzine 25 MG TAB PO PRN (22:07)
--- NOTE | 2018-05-04 01:06 | CON ---
DATE OF CONSULTATION: 05/03/2018 REFERRING PHYSICIAN: Abdoulaye Wilks M.D. REASON FOR CONSULTATION: Dyspnea, recent weight gain with ascites, and pedal edema. HISTORY OF PRESENT ILLNESS: Ms. Sarah Aguirre is a very pleasant 73-year-old female who is kn own to me from before. The patient had not seen me at least for the last 3 years. The patient had E GD done by me in 2014 because of liver cirrhosis. She had no varicosities. She was found to have mu ltiple gastric polyps. The patient has been in and out of the hospital off and on for different reas ons. The most recent admission was I think in 02/2018. At the time, she was found to have infected right foot, also seen by Dr. Morgan Tesfaye, given some antibiotics. The patient used to see Dr. Lucho Hayes and she had not seen Dr. Ricky Hayes for a while. The patient's liver cirrhosis is from [facility]. The patient tells me her weight was about 180 pounds in January, now she has gained 40 pounds over the last probably about 6-8 weeks. The abdomen is markedly swollen and also she was feel ing difficulty breathing with slight movements. She also has increased pedal edema. The patient has no abdominal pain, no nausea, no vomiting. There is no fever. Today, she is actually feeling magdalena r and she is lying down flat without difficulty breathing. Clinically, she appears to have large vol ume ascites and it was confirmed by a CAT scan of abdomen yesterday. The patient denies any nausea, vomiting. No hematochezia, no melena. She also has had previous encephalopathy in the past, but at the present time she is awake; alert; communicating; and oriented to time, place, and person. She astorga s no other relevant history. ALLERGIES: 1. ALBUTEROL. 2. BARIUM. 3. TYLENOL. 4. IODINE. 5. PHENERGAN. SOCIAL HISTORY: The patient denies any smoking, alcohol intake, or drug abuse. She does not drink a lcohol. MEDICAL ILLNESSES: 1. Liver cirrhosis due to steatohepatitis with ascites. 2. Chronic obstructive pulmonary disease. 3. Coronary artery disease. 4. Diabetes mellitus. 5. Hypertension. 6. Dyslipidemia. 7. Osteoporosis. 8. Cerebrovascular accident with recovery. 9. Possible aspiration pneumonia. 10. Infected right foot with fungemia in the past. 11. Anxiety. 12. Depression. 13. Fibromyalgia. 14. Physical deconditioning. 15. She is status post PTCA with stent placed. MEDICATIONS: 1. Tums. 2. Coreg. 3. Lotrisone cream. 4. Desyrel. 5. ____. 6. Lexapro. 7. Iron supplement. 8. Furosemide. 9. Vicodin p.r.n. 10. Hydroxyzine p.r.n. 11. Insulin sliding scale. She is also on Lantus insulin 40 units at bedtime and 40 units in the mo rning. Other meds Imdur, lactulose, Zofran, Protonix, MiraLax, ____. SURGERIES: 1. Right femur surgery. 2. Neck surgery. 3. Right ankle surgery. 4. Cardiac catheterization and stent placement. 5. Cholecystectomy. 6. Hysterectomy. FAMILY HISTORY: Liver disease in multiple family members. REVIEW OF SYSTEMS: Ten-point review of systems reviewed. DELI SLICER: No history of any seizure disorder. No chronic headache, no syncope. Respiratory system: History of COPD with coughing and mild dyspne a off and on. No hemoptysis. Cardiovascular system: No chest pain, no palpitation, no orthopnea, b ut does have history of dyspnea with exertion. No PND. Gastrointestinal: As in history of present illness. Genitourinary: No dysuria, hematuria, or frequency of urination. Musculoskeletal: Histor y of generalized body pains and arthralgias. Psychiatric: History of anxiety and depression. PHYSICAL EXAMINATION: GENERAL: The patient appears comfortable. She is actually lying flat on her back and she is not romario rt of breath. VITAL SIGNS: Stable. Temperature 97.7 degrees Fahrenheit, pulse is 75, blood pressure is 137/61. HEENT: Conjunctivae clear. NECK: Supple. No adenitis or thyromegaly noted. CARDIOVASCULAR SYSTEM: First and second sounds normal. LUNGS: Clear to auscultation. ABDOMEN: Abdomen is distended. Abdomen is firm. Abdomen is nontender. There is no organomegaly or masses. She had large volume ascites on physical exam. EXTREMITIES: 3+ edema. LABORATORY DATA: Shows WBC 3400, hemoglobin 12.6, hematocrit 36.8, MCV 98.3, platelet count 131,000, polymorphs 57, lymphocytes 22, monocytes 14. Serum chemistries: Sodium is 140, potassium 4.1, chlo ride 106, bicarbonate 29, BUN is 20, creatinine is 0.85, glucose 102, calcium 8.6, bilirubin 0.7, AST 47, ALT 27, alkaline phosphatase 213, total protein 5.8, albumin is 3, globulin 2.8. CLINICAL IMPRESSION: A 73-year-old female with: 1. Steatohepatitis with ascites. She has gained lot of weight over the last few weeks. She has ten se ascites. She also has 3+ edema. 2. Diabetes mellitus. 3. Coronary artery disease. 4. Chronic obstructive pulmonary disease. 5. Hyperlipidemia. 6. Depression, anxiety. RECOMMENDATIONS: 1. Low-sodium diet. 2. Large volume paracentesis earlier today. Once her symptoms improve, she will probably go home on a low-sodium diet and diuretics.
[2018-05-04 04:11] LABS: #Eosinphils 0.1 thou/uL (0.0-0.7); #Lymphocytes 0.9 thou/uL (1.20-3.40); #Monocytes 0.4 thou/uL (0.11-0.59); #Neutrophils 1.6 thou/uL (1.40-6.50); %Basophils 0.5 % (0.0-1.0); %Eosinophils 2.8 % (0.0-10.0); %Lymphocytes 30.4 % (21.0-51.0); %Monocytes 12.5 % (0.0-10.0); %Neutrophils 53.8 % (42.0-75.0); Hemoglobin 12.1 g/dL (12.0-16.0); Mean Corpuscular HGB CONC 34.6 g/dL (32.0-36.0); Mean Corpuscular Hemoglobin 34.5 pg (27.0-31.0); Mean Corpuscular Volume 99.6 fL (78.0-98.0); Mean Platelet Volume 7.4 fL (7.4-10.4); Platelet Count 102 thou/uL (130-400); RBC Distribution Width 13.3 % (11.5-14.5); Red Blood Cell (RBC) Count 3.52 mill/uL (4.20-5.40)
[2018-05-04 04:22] LABS: Anion Gap 8 mmol/L (10-20); BUN (Urea Nitrogen) 18 mg/dL (9.8-20.1); Calc. Creatinine Clearance 109 mL/min (70-130); Calcium 8.6 mg/dL (7.8-10.44); Carbon Dioxide 32 mmol/L (23-31); Chloride 105 mmol/L (98-107); Estimated GFR-MDRD 77; Glucose 178 mg/dL (83-110); Potassium 3.9 mmol/L (3.5-5.1); Sodium 141 mmol/L (136-145)
[2018-05-04] MEDS ORDERED: INSULIN GLARGINE HUM REC ANLOG 14 UNIT SQ SCH (07:30)
[2018-05-04] MEDS ORDERED: FERROUS SULFATE 65 MG PO SCH (09:00)
[2018-05-04] MEDS ORDERED: Clotrimazole/Betamethasone Cream 45 GM TUBE TOP SCH (09:00)
[2018-05-04] MEDS ORDERED: Silver Sulfadiazine 1% Cream 50 GM TUBE TP SCH (09:00)
[2018-05-04] MEDS: Dicyclomine 10 MG CAP PO SCH ×2 (11:00→20:55)
[2018-05-04] MEDS: Carvedilol 3.125 MG TAB PO SCH ×2 (11:00→20:55)
[2018-05-04] MEDS: Polyethylene Glycol 3350 17 GM Packet PO SCH (11:00)
[2018-05-04] MEDS: Insulin Glargine 14 UNITS in Pre-Filled Syringe 1 EACH SC SCH (11:00)
[2018-05-04] MEDS: Enoxaparin Sodium 40 MG/0.4 ML SYRINGE SC SCH (11:01)
[2018-05-04] MEDS: Ferrous Sulfate 325 MG TAB PO SCH (11:01)
[2018-05-04] MEDS: Potassium Chloride 20 MEQ TAB PO SCH (11:01)
[2018-05-04] MEDS: Escitalopram Oxalate 10 mg Tablet PO SCH (11:01)
[2018-05-04] MEDS: Furosemide 40 MG TAB PO SCH (11:01)
[2018-05-04] MEDS: Ondansetron ODT 8 MG TAB PO PRN ×2 (12:45→20:55)
[2018-05-04] MEDS: HumaLOG 300 UNITS/3 ML VIAL SC PRN ×2 (14:04→17:20)
[2018-05-04] MEDS: Clotrimazole/Betamethasone Cream 45 GM TUBE TOP SCH (14:09)
--- NOTE | 2018-05-04 14:14 | PDOC.PN ---
- Subjective Encounter Start Date: 05/04/18 Encounter Start Time: 10:20 Pt seen for followup re: acute hypoxic respiratory failure. Denies chest pain, shortness of breath, fevers or chills. - Objective MAR Reviewed: Yes Vital Signs & Weight: Vital Signs (12 hours) Temp Pulse Resp BP BP Pulse Ox 05/04/18 08:00 98.0 F 79 12 114/53 L 89 L 05/04/18 04:00 98.1 F 77 18 138/61 100 Weight Admit Weight 225 lb 1.76 oz Weight 225 lb 1.76 oz Result Diagrams: 05/04/18 03:55 05/04/18 03:55 Additional Labs: Accuchecks 05/04/18 05/04/18 05/04/18 13:53 08:53 06:04 POC Glucose 182 H 142 H 159 H 05/04/18 05/03/18 05/03/18 01:58 20:49 16:34 POC Glucose 114 H 88 74 Labs reviewed by me Phys Exam - Physical Examination Obese HEENT: moist MMs, sclera anicteric, oral pharynx no lesions, 2+ tonsils Neck: no nodes, no JVD, supple, full ROM Respiratory: no wheezing, no rhonchi Jose crackles Cardiovascular: RRR, no rub S1, S2 Gastrointestinal: soft, non-tender, positive bowel sounds distention Musculoskeletal: edema present Neurological: moves all 4 limbs Psychiatric: normal affect Deviation from normal: Oriented to person and place, not to time Dx/Plan (1) Acute respiratory failure with hypoxia Code(s): J96.01 - ACUTE RESPIRATORY FAILURE WITH HYPOXIA Status: Acute Comment: Patient still needing supplemental oxygen, likely due to volume overload/ascites. Continue furosemide (2) Ascites Code(s): R18.8 - OTHER ASCITES Status: Chronic Comment: s/p paracentesis, follow cytology (3) CAD (coronary artery disease) Code(s): I25.10 - ATHSCL HEART DISEASE OF [place] CORONARY ARTERY W/O ANG PCTRS Status: Chronic Qualifiers: Coronary Disease-Associated Artery/Lesion type: [place] artery [place] vs. transplanted heart: [place] heart Associated angina: angina presence unspecified Qualified Code(s): I25.10 - Atherosclerotic heart disease of [place] coronary artery without angina pectoris Comment: stable (4) DM type 2 (diabetes mellitus, type 2) Status: Chronic Qualifiers: Diabetes mellitus terminal clerk insulin use: with terminal clerk use Diabetes mellitus complication status: without complication Qualified Code(s): E11.9 - Type 2 diabetes mellitus without complications; Z79.4 - long-term (current) use of insulin; Z79.4 - long-term (current) use of insulin; Z79.4 - long-term ( current) use of insulin; Z79.4 - long term care phlebotomist (current) use of insulin Comment: continue accuchecks, insulin sliding scale (5) Cirrhosis of liver Code(s): K74.60 - UNSPECIFIED CIRRHOSIS OF LIVER Status: Chronic - Plan * . Review of Systems - Review of Systems Constitutional: negative: fever, chills, sweats, weakness, malaise Respiratory: SOB with Excertion. negative: Cough, Dry, Shortness of Breath, Hemoptysis, Pleuritic Pain, Sputum, Wheezing Cardiovascular: negative: chest pain, palpitations, orthopnea, paroxysmal nocturnal dyspnea, edema, light headedness Gastrointestinal: negative: Nausea, Vomiting, Abdominal Pain, Diarrhea, Constipation, Melena, Hematochezia Genitourinary: negative: Dysuria, Frequency, Incontinence, Hematuria, Retention Skin: negative: Rash, Lesions, Placido, Bruising - Medications/Allergies Allergies/Adverse Reactions: Allergies Allergy/AdvReac Type Severity Reaction Status Date / Time albuterol Allergy Severe Short of Verified 05/03/18 04:46 Breath barium sulfate Allergy Severe Short of Verified 05/03/18 04:46 Breath acetaminophen [From Tylenol] Allergy Intermediate Verified 05/03/18 04:46 Iodine and Iodide Containing Allergy Intermediate Hives Verified 05/03/18 04:46 Produc promethazine HCl Allergy Intermediate Verified 05/03/18 04:46 [From Phenergan] Medications: Current Medications Betamethasone Valerate (Valisone 0.1% Cream) 0 gm TOP DAILY [facility] Betamethasone/Clotrimazole (Lotrisone Cream) 0 gm TOP DAILY [facility] Bisacodyl (Dulcolax) 10 mg PO DAILYPRN PRN PRN Reason: Constipation Calcium Carbonate (Tums) 500 mg PO Q2H PRN PRN Reason: Heartburn or Indigestion Carvedilol (Coreg) 3.125 mg PO BID [facility] Last Admin: 05/04/18 11:00 Dose: 3.125 mg Dextromethorphan Polistirix (Delsym) 60 mg PO PRN PRN PRN Reason: Cough Dextrose/Water (Dextrose 50%) 25 gm SLOW IVP PRN PRN PRN Reason: Hypoglycemia Dicyclomine HCl (Bentyl) 10 mg PO BID [facility] Last Admin: 05/04/18 11:00 Dose: 10 mg Enoxaparin Sodium (Lovenox) 40 mg SC 0900 [facility] Last Admin: 05/04/18 11:01 Dose: 40 mg Escitalopram Oxalate (Lexapro) 10 mg PO DAILY [facility] Last Admin: 05/04/18 11:01 Dose: 10 mg Ferrous Sulfate (Feosol) [facility] [place] Last Admin: 05/04/18 11:01 Dose: 325 mg Furosemide (Lasix) 40 [facility] [place] Last Admin: 05/04/18 11:01 Dose: 40 mg Glucagon (Glucagon) 1 mg IM PRN PRN PRN Reason: Hypoglycemia Hydrocodone Bitartrate/Ibuprofen (Vicoprofen 7.5/200) 1 tab PO BID PRN PRN Reason: Pain Last Admin: 05/03/18 22:02 Dose: 1 tab Hydroxyzine HCl (Atarax) 50 mg PO Q6H PRN PRN Reason: Itching Last Admin: 05/03/18 22:07 Dose: 50 mg Dextrose/Water (D5w) 1,000 mls @ 0 mls/hr IV .Q0M PRN; As Directed PRN Reason: Hypoglycemia Insulin Glargine 14 units/ (Miscellaneous Medication) 0.14 mls @ 0 mls/hr SC 0730 [facility] Last Admin: 05/04/18 11:00 Dose: 0.14 mls Insulin Glargine 42 units/ (Miscellaneous Medication) 0.42 mls @ 0 mls/hr SC HS [facility] Last Admin: 05/03/18 20:53 Dose: Not Given Insulin Human Lispro (Humalog) 0 units SC .MILD SLIDING SCALE PRN PRN Reason: Mild Correctional Scale Last Admin: 05/04/18 14:04 Dose: 2 unit Isosorbide Mononitrate (Imdur Er) 30 mg [facility] [place] Last Admin: 05/04/18 11:01 Dose: 30 mg Lactulose (Lactulose) 30 gm PO DAILY PRN PRN Reason: Constipation Ondansetron HCl (Zofran Odt) 8 mg PO Q8H PRN PRN Reason: Nausea/Vomiting Last Admin: 05/04/18 12:45 Dose: 8 mg Pantoprazole Sodium (Protonix) 40 mg PO QAM [facility] Last Admin: 05/04/18 11:01 Dose: 40 mg Polyethylene Glycol (Miralax) 17 gm PO DAILY [facility] Last Admin: 05/04/18 11:00 Dose: 17 gm Potassium Chloride (K-Dur) 20 meq PO QAM [facility] Last Admin: 05/04/18 11:01 Dose: 20 meq Potassium Chloride (Klor-Con 10) 10 meq PO HS [facility] Last Admin: 05/03/18 20:11 Dose: 10 meq Silver Sulfadiazine (Silvadene Cream) 0 gm TP DAILY [facility] Sodium Chloride (Flush - Normal Saline) 10 ml IVF PRN PRN PRN Reason: Saline Flush Last Admin: 05/04/18 11:01 Dose: 10 ml
[2018-05-04] MEDS: Silver Sulfadiazine 1% Cream 50 GM TUBE TP SCH (20:01)
[2018-05-04] MEDS: Potassium Chloride 10 MEQ TAB PO SCH (20:55)
[2018-05-04] MEDS: Insulin Glargine 42 UNITS in Pre-Filled Syringe 1 EACH SC SCH (21:01)
[2018-05-04] MEDS: hydrOXYzine 25 MG TAB PO PRN (21:16)
--- NOTE | 2018-05-05 02:15 | PRG ---
DATE OF SERVICE: 05/04/2018 SUBJECTIVE: This is a 73-year-old female with liver cirrhosis, ascites. The patient has h istory of COPD. The patient is admitted because of weight gain of 40 pounds and also dyspnea. She w as found to have ascites and 4+ edema in legs. She had a 5.9 L of fluid drained yesterday by the Rad iology Department. The fluid was transudate. No evidence of any spontaneous bacterial peritonitis. The cell count is less than 300. Also, the fluid was transudate. The patient is feeling better. S he has some vague abdominal pain off and on. There is no nausea, no vomiting. She is eating very we ll. The edema in legs is going down. She is not short of breath anymore. PHYSICAL EXAMINATION: VITAL SIGNS: Afebrile. Pulse is 79, blood pressure 114/53. GENERAL: She appears comfortable, not short of breath. CARDIOVASCULAR SYSTEM: First and second heart sounds normal. LUNGS: Clear to auscultation. ABDOMEN: Soft to palpate. Abdomen is mildly distended. Abdomen is nontender. There is no organome lauren or masses. The ascitic fluid is transudate and the cell count does not favor any peritonitis. RECOMMENDATIONS: 1. Low salt diet. 2. Fluid restriction. 3. Diuretics.
[2018-05-05] MEDS: Ondansetron ODT 8 MG TAB PO PRN ×3 (04:51→21:18)
[2018-05-05] MEDS: hydrOXYzine 25 MG TAB PO PRN ×2 (04:51→21:21)
[2018-05-05 05:53] LABS: #Eosinphils 0.1 thou/uL (0.0-0.7); #Lymphocytes 0.9 thou/uL (1.20-3.40); #Monocytes 0.3 thou/uL (0.11-0.59); #Neutrophils 1.1 thou/uL (1.40-6.50); %Basophils 0.5 % (0.0-1.0); %Eosinophils 4.2 % (0.0-10.0); %Lymphocytes 37.1 % (21.0-51.0); %Monocytes 12.6 % (0.0-10.0); %Neutrophils 45.6 % (42.0-75.0); Hemoglobin 11.6 g/dL (12.0-16.0); Mean Corpuscular Hemoglobin 33.8 pg (27.0-31.0); Mean Corpuscular Volume 99.5 fL (78.0-98.0); Mean Platelet Volume 7.4 fL (7.4-10.4); Platelet Count 99 thou/uL (130-400); RBC Distribution Width 13.1 % (11.5-14.5); Red Blood Cell (RBC) Count 3.44 mill/uL (4.20-5.40); White Blood Cell (WBC) Count 2.3 thou/uL (4.8-10.8)
[2018-05-05 05:57] LABS: Anion Gap 5 mmol/L (10-20); BUN (Urea Nitrogen) 17 mg/dL (9.8-20.1); Calc. Creatinine Clearance 111 mL/min (70-130); Calcium 8.5 mg/dL (7.8-10.44); Carbon Dioxide 34 mmol/L (23-31); Chloride 105 mmol/L (98-107); Estimated GFR-MDRD 78; Glucose 134 mg/dL (83-110); Potassium 3.8 mmol/L (3.5-5.1); Sodium 140 mmol/L (136-145)
[2018-05-05] MEDS: Insulin Glargine 14 UNITS in Pre-Filled Syringe 1 EACH SC SCH (08:21)
[2018-05-05] MEDS: Betamethasone 0.1% Cream 45 GM TUBE TOP SCH (08:22)
[2018-05-05] MEDS: Enoxaparin Sodium 40 MG/0.4 ML SYRINGE SC SCH (08:23)
[2018-05-05] MEDS: Carvedilol 3.125 MG TAB PO SCH ×2 (08:24→21:05)
[2018-05-05] MEDS: Dicyclomine 10 MG CAP PO SCH ×2 (08:24→21:10)
[2018-05-05] MEDS: Escitalopram Oxalate 10 mg Tablet PO SCH (08:24)
[2018-05-05] MEDS: Potassium Chloride 20 MEQ TAB PO SCH (08:24)
[2018-05-05] MEDS: Ferrous Sulfate 325 MG TAB PO SCH (08:24)
[2018-05-05] MEDS: Furosemide 40 MG TAB PO SCH (08:24)
[2018-05-05] MEDS: Polyethylene Glycol 3350 17 GM Packet PO SCH ×2 (08:25→18:52)
[2018-05-05] MEDS: Clotrimazole/Betamethasone Cream 45 GM TUBE TOP SCH (08:27)
[2018-05-05] MEDS: Silver Sulfadiazine 1% Cream 50 GM TUBE TP SCH (10:41)
[2018-05-05] MEDS ORDERED: Sodium Bicarbonate 2.5 MEQ/5 ML VIAL ONE (14:26)
[2018-05-05] MEDS ORDERED: Lidocaine 1% PF 5 ML VIAL ONE (14:27)
--- NOTE | 2018-05-05 16:16 | PDOC.PN ---
- Subjective Encounter Start Date: 05/05/18 Encounter Start Time: 07:00 Pt seen for followup re: acute hypoxic respiratory failure. Denies chest pain, nausea or vomiting. No fevers or chills. No abdo pain. - Objective MAR Reviewed: Yes Vital Signs & Weight: Vital Signs (12 hours) Temp Pulse Resp BP Pulse Ox 05/05/18 08:00 98.1 F 65 11 L 93 L 05/05/18 07:52 98.1 F 65 11 L 100/55 L 93 L Weight Admit Weight 225 lb 1.76 oz Weight 225 lb 1.76 oz I&O: 05/04/18 05/05/18 05/06/18 06:59 06:59 06:59 Intake Total 310 Balance 310 Result Diagrams: 05/05/18 05:32 05/05/18 05:32 Additional Labs: Accuchecks 05/05/18 05/04/18 05/04/18 11:06 21:03 17:02 POC Glucose 111 H 212 H 257 H Labs reviewed by me Phys Exam - Physical Examination Constitutional: NAD HEENT: moist MMs Neck: supple Respiratory: clear to auscultation bilateral Cardiovascular: RRR Gastrointestinal: soft, non-tender ascites Musculoskeletal: edema present Neurological: moves all 4 limbs Psychiatric: normal affect Dx/Plan (1) Acute respiratory failure with hypoxia Code(s): J96.01 - ACUTE RESPIRATORY FAILURE WITH HYPOXIA Status: Acute Comment: Improved, continue Lasix (2) Ascites Code(s): R18.8 - OTHER ASCITES Status: Chronic Comment: s/p paracentesis, pt to followup with GI as outpatient. Pt to have repeat paracentesis today, followed by albumin IV. (3) CAD (coronary artery disease) Code(s): I25.10 - ATHSCL HEART DISEASE OF [place] CORONARY ARTERY W/O ANG PCTRS Status: Chronic Qualifiers: Coronary Disease-Associated Artery/Lesion type: [place] artery [place] vs. transplanted heart: [place] heart Associated angina: angina presence unspecified Qualified Code(s): I25.10 - Atherosclerotic heart disease of [place] coronary artery without angina pectoris Comment: stable (4) DM type 2 (diabetes mellitus, type 2) Status: Chronic Qualifiers: Diabetes mellitus senior care insulin use: with superintendent [employer] use Diabetes mellitus complication status: without complication Qualified Code(s): E11.9 - Type 2 diabetes mellitus without complications; Z79.4 - group home (current) use of insulin; Z79.4 - [facility] (current) use of insulin; Z79.4 - [facility] ( current) use of insulin; Z79.4 - group home (current) use of insulin Comment: on accuchecks, insulin sliding scale (5) Cirrhosis of liver Code(s): K74.60 - UNSPECIFIED CIRRHOSIS OF LIVER Status: Chronic - Plan * . Review of Systems - Review of Systems Constitutional: negative: fever, chills, sweats, weakness, malaise Respiratory: negative: Cough, Shortness of Breath, SOB with Excertion, Pleuritic Pain, Sputum, Wheezing - Medications/Allergies Allergies/Adverse Reactions: Allergies Allergy/AdvReac Type Severity Reaction Status Date / Time albuterol Allergy Severe Short of Verified 05/03/18 04:46 Breath barium sulfate Allergy Severe Short of Verified 05/03/18 04:46 Breath acetaminophen [From Tylenol] Allergy Intermediate Verified 05/03/18 04:46 Iodine and Iodide Containing Allergy Intermediate Hives Verified 05/03/18 04:46 Produc promethazine HCl Allergy Intermediate Verified 05/03/18 04:46 [From Phenergan] Medications: Current Medications Betamethasone Valerate (Valisone 0.1% Cream) 0 gm TOP DAILY [facility] Last Admin: 05/05/18 08:22 Dose: 1 applic Betamethasone/Clotrimazole (Lotrisone Cream) 0 gm TOP DAILY [facility] Last Admin: 05/05/18 08:27 Dose: 1 applic Bisacodyl (Dulcolax) 10 mg PO DAILYPRN PRN PRN Reason: Constipation Calcium Carbonate (Tums) 500 mg PO Q2H PRN PRN Reason: Heartburn or Indigestion Carvedilol (Coreg) 3.125 mg PO BID [facility] Last Admin: 05/05/18 08:24 Dose: 3.125 mg Dextromethorphan Polistirix (Delsym) 60 mg PO PRN PRN PRN Reason: Cough Dextrose/Water (Dextrose 50%) 25 gm SLOW IVP PRN PRN PRN Reason: Hypoglycemia Dicyclomine HCl (Bentyl) 10 mg PO BID [facility] Last Admin: 05/05/18 08:24 Dose: 10 mg Enoxaparin Sodium (Lovenox) 40 mg SC 0900 [facility] Last Admin: 05/05/18 08:23 Dose: 40 mg Escitalopram Oxalate (Lexapro) 10 mg PO DAILY [facility] Last Admin: 05/05/18 08:24 Dose: 10 mg Ferrous Sulfate (Feosol) 325 mg PO [facility] Last Admin: 05/05/18 08:24 Dose: 325 mg Furosemide (Lasix) 40 mg PO [facility] Last Admin: 05/05/18 08:24 Dose: 40 mg Glucagon (Glucagon) 1 mg IM PRN PRN PRN Reason: Hypoglycemia Hydrocodone Bitartrate/Ibuprofen (Vicoprofen 7.5/200) 1 tab PO BID PRN PRN Reason: Pain Last Admin: 05/05/18 04:51 Dose: 1 tab Hydroxyzine HCl (Atarax) 50 mg PO Q6H PRN PRN Reason: Itching Last Admin: 05/05/18 04:51 Dose: 50 mg Dextrose/Water (D5w) 1,000 mls @ 0 mls/hr IV .Q0M PRN; As Directed PRN Reason: Hypoglycemia Insulin Glargine 14 units/ (Miscellaneous Medication) 0.14 mls @ 0 mls/hr SC 0730 [facility] Last Admin: 05/05/18 08:21 Dose: 0.14 mls Insulin Glargine 42 units/ (Miscellaneous Medication) 0.42 mls @ 0 mls/hr SC HS [facility] Last Admin: 05/04/18 21:01 Dose: 0.42 mls Insulin Human Lispro (Humalog) 0 units SC .MILD SLIDING SCALE PRN PRN Reason: Mild Correctional Scale Last Admin: 05/04/18 17:20 Dose: 4 unit Isosorbide Mononitrate (Imdur Er) 30 mg PO [facility] Last Admin: 05/05/18 08:24 Dose: 30 mg Lactulose (Lactulose) 30 gm PO DAILY PRN PRN Reason: Constipation Last Admin: 05/05/18 08:22 Dose: 30 gm Ondansetron HCl (Zofran Odt) 8 mg PO Q8H PRN PRN Reason: Nausea/Vomiting Last Admin: 05/05/18 13:52 Dose: 8 mg Pantoprazole Sodium (Protonix) 40 mg PO [facility] Last Admin: 05/05/18 08:24 Dose: 40 mg Polyethylene Glycol (Miralax) 17 gm PO DAILY [facility] Last Admin: 05/05/18 08:25 Dose: Not Given Potassium Chloride (K-Dur) 20 meq PO QAM [facility] Last Admin: 05/05/18 08:24 Dose: 20 meq Potassium Chloride (Klor-Con 10) 10 meq PO HS [facility] Last Admin: 05/04/18 20:55 Dose: 10 meq Silver Sulfadiazine (Silvadene Cream) 0 gm TP DAILY [facility] Last Admin: 05/05/18 10:41 Dose: Not Given Sodium Chloride (Flush - Normal Saline) 10 ml IVF PRN PRN PRN Reason: Saline Flush Last Admin: 05/05/18 08:50 Dose: 10 ml
--- NOTE | 2018-05-05 16:18 | ULT ---
LIMITED ABDOMINAL ULTRASOUND ASCITES STUDY 05/05/18 CLINICAL HISTORY: Ascites. FINDINGS: Ultrasound examination performed of the abdomen to evaluate for the volume of ascites. There is minim al ascites present which is not sufficient for performance of paracentesis at this time. The patient was notified of the findings. IMPRESSION: Minimal ascites of the abdomen, the volume of which is not sufficient for performing paracentesis. As necessary, imaging followup may be obtained. POS: [facility]
[2018-05-05] MEDS: Insulin Glargine 42 UNITS in Pre-Filled Syringe 1 EACH SC SCH (21:05)
[2018-05-05] MEDS: Potassium Chloride 10 MEQ TAB PO SCH (21:05)
[2018-05-05] MEDS ORDERED: oxyCODONE 5 MG TAB PO SCH (23:15)
[2018-05-06 04:36] LABS: #Eosinphils 0.1 thou/uL (0.0-0.7); #Lymphocytes 0.9 thou/uL (1.20-3.40); #Monocytes 0.3 thou/uL (0.11-0.59); %Basophils 0.6 % (0.0-1.0); %Eosinophils 4.2 % (0.0-10.0); %Lymphocytes 39.3 % (21.0-51.0); %Monocytes 13.1 % (0.0-10.0); %Neutrophils 42.8 % (42.0-75.0); Anion Gap 9 mmol/L (10-20); BUN (Urea Nitrogen) 19 mg/dL (9.8-20.1); Calc. Creatinine Clearance 96 mL/min (70-130); Calcium 8.3 mg/dL (7.8-10.44); Carbon Dioxide 30 mmol/L (23-31); Chloride 105 mmol/L (98-107); Estimated GFR-MDRD 66; Glucose 197 mg/dL (83-110); Hemoglobin 11.7 g/dL (12.0-16.0); Mean Corpuscular HGB CONC 33.7 g/dL (32.0-36.0); Mean Corpuscular Hemoglobin 33.5 pg (27.0-31.0); Mean Corpuscular Volume 99.2 fL (78.0-98.0); Platelet Count 100 thou/uL (130-400); RBC Distribution Width 13.2 % (11.5-14.5); Red Blood Cell (RBC) Count 3.49 mill/uL (4.20-5.40); Sodium 140 mmol/L (136-145); White Blood Cell (WBC) Count 2.3 thou/uL (4.8-10.8)
[2018-05-06] MEDS: Insulin Glargine 14 UNITS in Pre-Filled Syringe 1 EACH SC SCH (08:01)
[2018-05-06 08:07] VITALS: BP 121/63; TEMP 98.1
[2018-05-06] MEDS: Polyethylene Glycol 3350 17 GM Packet PO SCH ×2 (09:39→09:45)
[2018-05-06] MEDS: Enoxaparin Sodium 40 MG/0.4 ML SYRINGE SC SCH (09:39)
[2018-05-06] MEDS: Escitalopram Oxalate 10 mg Tablet PO SCH (09:39)
[2018-05-06] MEDS: Clotrimazole/Betamethasone Cream 45 GM TUBE TOP SCH (09:39)
[2018-05-06] MEDS: Betamethasone 0.1% Cream 45 GM TUBE TOP SCH (09:40)
[2018-05-06] MEDS: Furosemide 40 MG TAB PO SCH (09:40)
[2018-05-06] MEDS: Ferrous Sulfate 325 MG TAB PO SCH (09:40)
[2018-05-06] MEDS: Carvedilol 3.125 MG TAB PO SCH (09:40)
[2018-05-06] MEDS: Potassium Chloride 20 MEQ TAB PO SCH (09:40)
[2018-05-06] MEDS: Silver Sulfadiazine 1% Cream 50 GM TUBE TP SCH (09:46)
[2018-05-06] MEDS: Dicyclomine 10 MG CAP PO SCH (09:47)
--- NOTE | 2018-05-07 09:02 | DIS ---
DATE OF ADMISSION: 05/03/2018 DATE OF DISCHARGE: 05/06/2018 PRIMARY CARE PROVIDER: Dr. Ricky Hayes. DISCHARGE DIAGNOSES: 1. Acute hypoxic respiratory failure. 2. Ascites. CONSULTATIONS DURING THIS HOSPITALIZATION: Gastroenterology; Dr. Jeevan Armijo. CONDITION OF PATIENT ON THE DAY OF DISCHARGE: Stable. I assessed Ms. Aguirre on the day of discharge. She denies any chest pain or shortness of breath. Vital signs are stable. S1 and S2 are heard, reg ular. Lungs are clear to auscultation bilaterally. DISCHARGE MEDICATIONS: No change was made to her preadmission home medications as dictated on histor y and physical note dated 05/03/2018. HOSPITAL COURSE: Ms. Aguirre is a pleasant 73-year-old lady who was admitted to [facility] from [facility] for acute hypoxic respiratory failure secondary to a scitic fluid buildup. She underwent ultrasound-guided paracentesis on 05/03/2018. She was seen by [facility]. Fluid did not show any malignant cells. She had repeat ultrasound on 05/05, which showed minimal ascites of the abdomen. Per family's request, she was referred to [facility], where she has been accepted. She is bein g discharged to [facility]. On the day of discharge, she has white count 2,300, hemoglobin 11.7, platelet count 100,000, normal e lectrolytes and normal creatinine. BNP during this hospitalization was 260. Many thanks for allowing me to participate in your patient's care. Please feel free to contact me wi th any questions or concerns. DISCHARGE DESTINATION: [facility]. TOTAL AMOUNT OF TIME SPENT COORDINATING THIS DISCHARGE: 33 minutes.?
--- NOTE | 2018-05-12 12:39 | OP ---
DATE OF PROCEDURE: 05/11/2018 PREOPERATIVE DIAGNOSIS: Symptomatic left carotid stenosis with occluded right carotid artery. POSTOPERATIVE DIAGNOSIS: Symptomatic left carotid stenosis with occluded right carotid artery. PROCEDURE PERFORMED: Left carotid endarterectomy with patch angioplasty. SURGEON: Garland Wilkinson M.D. ANESTHESIA: General endotracheal. ESTIMATED BLOOD LOSS: Less than 100. SPECIMENS: Internal jugular lymph node. DESCRIPTION OF PROCEDURE: After consent was obtained, the patient was brought to the operating room and placed in supine position on the operating room table. Appropriate anesthetic monitor was placed and general endotracheal anesthesia induced. Left neck was prepped and draped in usual sterile fash ion. Skin incision was made along the anterior border of the sternocleidomastoid. Platysma was inci sed with electrocautery. Two facial vein branches were divided between ties and clips. Carotid flores th was entered. Vagus nerve was noted and protected the level of the hypoglossal nerve. Commo n internal and external carotid arteries were carefully exposed. The patient was systemically hepari nized. Internal, common, and external carotid arteries were serially clamped. Incision was made on the common carotid artery extended through the bulb distal to the plaque in the internal carotid rowan ry. A 12-Danish Lorida shunt was placed and antegrade flow reestablished. During the time of clampi ng, the cerebral oximeter did drop approximately 10 points bilaterally, which was approximately 10%. On reinstitution of antegrade flow, the cerebral oximeter returned to baseline. Endarterectomy was begun on the common carotid artery. The medial plane was established and extended through the bulb. A good tapered distal endpoint was obtained. Eversion endarterectomy was performed of the external carotid artery. Medial fibers were debrided. Bovine pericardial patch was sewn in place with runnin g 6-0 Prolene suture. Prior to completion of the patch suture line, the shunt was clamped and remove d. Arteries were backbled and flushed. Suture line was completed. Antegrade flow was reestablished up the external carotid artery followed by the internal carotid artery ten seconds later. Protamine was administered. Surgicel and Gelfoam and thrombin were used to obtain hemostasis . After ad equate hemostasis had been obtained, wounds were irrigated, closed in multiple layers, and Dermabond applied to the skin. The patient was awakened and neurologically at his baseline at completion.
== END 2018-05-06 14:30 | DRG 189 ==
LOC: ERS 21:03 → ONC 05-03 02:15
PROVIDERS: ADMIT Family Medicine; ATTEND Family Medicine
PROC: 0W9G3ZX Drainage of Peritoneal Cavity, Percutaneous Approach, Diagnostic (ICD-10-PCS; principal; 2018-05-03)
DX: J96.01 Acute respiratory failure with hypoxia (principal); R18.8 Other ascites; E11.9 Type 2 diabetes mellitus without complications; I25.10 Atherosclerotic heart disease of native coronary artery without angina pectoris; I11.0 Hypertensive heart disease with heart failure; I50.9 Heart failure, unspecified; J44.9 Chronic obstructive pulmonary disease, unspecified; K75.81 Nonalcoholic steatohepatitis (NASH); K74.69 Other cirrhosis of liver; E78.5 Hyperlipidemia, unspecified; M81.0 Age-related osteoporosis without current pathological fracture; F41.9 Anxiety disorder, unspecified; F32.9 Major depressive disorder, single episode, unspecified; M79.7 Fibromyalgia; Z86.73 Personal history of transient ischemic attack (TIA), and cerebral infarction without residual deficits; Z88.6 Allergy status to analgesic agent; Z88.8 Allergy status to other drugs, medicaments and biological substances; Z79.4 Long term (current) use of insulin; Z79.899 Other long term (current) drug therapy; Z95.5 Presence of coronary angioplasty implant and graft
CPT/HCPCS: 36415; 36416; 49083; 71045; 74176; 76705; 80048; 80053; 81003; 81015; 82140; 82550; 82553; 82945; 83615; 83690; 83880; 84157; 84484; 85025; 85060; 85610; 85730; 88112; 88305; 89051; 90471; 90670; 93005; 94760; 96374; 96375; G0009; J1650; J2001; J2060

== ENCOUNTER 2018-05-16 09:56 | Day surgery (SDC) | payer MEDICARE, MEDICAID ==
[2018-05-16] MEDS ORDERED: Lidocaine 1% PF 5 ML VIAL ONE (11:12)
[2018-05-16 13:38] LABS: Fluid, Protein 1.1 g/dL (Not Available)
[2018-05-16 13:55] LABS: BF Color Yellow; BF RBC Count - Manual 276 /cumm; BF WBC/Nonhematics Ct. - Manua 84 /cumm; Body Fluid Source Ascites Body Fluid; Clarity Cloudy/Turbid (Clear); Tube # EDTA
[2018-05-16 14:22] LABS: BF Segmented Neutrophils 6 %; Cell Count Non Hematic 62 %; Lymphocytes 32 %
--- NOTE | 2018-05-16 14:25 | ULT ---
SONOGRAPHIC GUIDED PARACENTESIS: History: Recurrent ascites. FINDINGS: After explaining the procedure and answering all questions, sonographic survey shows moderate amount of free fluid throughout the abdomen. Sterile technique, buffered local anesthesia, sonographic tomasz nce and a right anterolateral approach were used to carefully advance a 15 cm 19 gauge Yueh needle an d catheter into the free fluid. The catheter was left to drain a total volume of 5.2 L milky barreto liqu id. Post procedure imaging shows no significant residual fluid. Patient tolerated the procedure well and was dismissed in good condition. IMPRESSION: Technically successful sonographic guided paracentesis. POS: [facility]
[2018-05-16 14:30] VITALS: BP 113/50; TEMP 97.4
[2018-05-16 14:47] VITALS: BMI 38.0
== END 2018-05-16 12:10 ==
LOC: ULT 09:56
PROVIDERS: ATTEND Internal Medicine Gastroenterology
PROC: 0W9G3ZZ Drainage of Peritoneal Cavity, Percutaneous Approach (ICD-10-PCS; principal; 2018-05-16)
DX: R18.8 Other ascites (principal); K74.60 Unspecified cirrhosis of liver; J44.9 Chronic obstructive pulmonary disease, unspecified; E11.9 Type 2 diabetes mellitus without complications; I10 Essential (primary) hypertension; I25.10 Atherosclerotic heart disease of native coronary artery without angina pectoris; F41.9 Anxiety disorder, unspecified; F32.9 Major depressive disorder, single episode, unspecified; E78.5 Hyperlipidemia, unspecified; M79.7 Fibromyalgia; M81.0 Age-related osteoporosis without current pathological fracture; Z88.5 Allergy status to narcotic agent; Z91.041 Radiographic dye allergy status; Z88.8 Allergy status to other drugs, medicaments and biological substances; Z86.73 Personal history of transient ischemic attack (TIA), and cerebral infarction without residual deficits
CPT/HCPCS: 49083; 82945; 83615; 84157; 85060; 87070; 87205; 89051; J2001

== ENCOUNTER 2018-05-20 20:20 | Observation (INO) | payer MEDICARE, MEDICAID ==
[2018-05-20 20:55] LABS: Bilirubin Negative (Negative); Blood, Urine Negative (Negative); Clarity CLEAR (Clear); Glucose, Urine (Dipstick) Negative (Negative); Leukocyte Negative (Negative); Nitrite Negative (Negative); Protein, Urine (Dipstick) Negative (Neg-Trace); Specific Gravity, Urine 1.009 (1.002-1.036); Urobilinogen 0.2 mg/dL (0.2-1.0)
--- NOTE | 2018-05-20 21:07 | RAD ---
PORTABLE CHEST: 05/20/18 HISTORY: Hypotension. COMPARISON: 05/11/18 study. Heart size appears borderline. The patient is slightly rotated. Lungs are clear of infiltrates. There is no signs of fracture. Bones are demineralized. Postoperative changes of the neck are noted. IMPRESSION: Borderline heart size. POS: [facility]
[2018-05-20 21:34] LABS: #Eosinphils 0.1 thou/uL (0.0-0.7); #Lymphocytes 1.1 thou/uL (1.20-3.40); #Monocytes 0.4 thou/uL (0.11-0.59); #Neutrophils 1.6 thou/uL (1.40-6.50); %Basophils 0.8 % (0.0-1.0); %Eosinophils 2.4 % (0.0-10.0); %Lymphocytes 34.4 % (21.0-51.0); %Monocytes 11.8 % (0.0-10.0); %Neutrophils 50.6 % (42.0-75.0); Hemoglobin 12.1 g/dL (12.0-16.0); Mean Corpuscular HGB CONC 32.8 g/dL (32.0-36.0); Mean Corpuscular Hemoglobin 33.1 pg (27.0-31.0); Mean Platelet Volume 7.5 fL (7.4-10.4); Platelet Count 108 thou/uL (130-400); RBC Distribution Width 13.4 % (11.5-14.5); Red Blood Cell (RBC) Count 3.65 mill/uL (4.20-5.40); White Blood Cell (WBC) Count 3.2 thou/uL (4.8-10.8)
[2018-05-20 21:48] LABS: ALT (SGPT) 18 U/L (8-55); AST (SGOT) 36 U/L (5-34); Albumin 2.5 g/dL (3.4-4.8); Alkaline Phosphatase 141 U/L (40-150); Anion Gap 10 mmol/L (10-20); BUN (Urea Nitrogen) 21 mg/dL (9.8-20.1); Bilirubin, Total 1.2 mg/dL (0.2-1.2); Calc. Creatinine Clearance 0 mL/min (70-130); Calcium 8.4 mg/dL (7.8-10.44); Carbon Dioxide 27 mmol/L (23-31); Chloride 105 mmol/L (98-107); Estimated GFR-MDRD 53; Globulin 2.5 g/dL (2.4-3.5); Glucose 87 mg/dL (83-110); Potassium 4.3 mmol/L (3.5-5.1); Sodium 138 mmol/L (136-145)
[2018-05-20] MEDS ORDERED: Ibuprofen 800 MG TAB ONE (23:42)
[2018-05-21] MEDS ORDERED: Ondansetron ODT 4 MG TAB SL PRN (00:14)
[2018-05-21] MEDS ORDERED: Ondansetron HCl/PF 4 MG/2 ML Vial IVP PRN (00:14)
[2018-05-21 00:31] VITALS: BMI 40.3
[2018-05-21] MEDS ORDERED: Mag-Al 1200 mg/1200 mg/30 ML UDCUP PO PRN (08:02)
[2018-05-21] MEDS ORDERED: HumaLOG 300 UNITS/3 ML VIAL SC PRN (08:02)
[2018-05-21] MEDS ORDERED: Dextrose 5% in Water 1,000 ML IV PRN (08:02)
[2018-05-21] MEDS ORDERED: Dextrose 50% Abboject 50 ML SYRINGE SLOW IVP PRN (08:02)
[2018-05-21] MEDS ORDERED: Ondansetron ODT 4 MG TAB PO PRN (08:02)
[2018-05-21] MEDS: Famotidine 20 MG TAB PO SCH ×2 (09:12→20:10)
--- NOTE | 2018-05-21 12:24 | HP ---
PRIMARY CARE PHYSICIAN: Dr. Marrufo. CHIEF COMPLAINT: Diffuse abdominal pain and feeling weak and tired. HISTORY OF PRESENT ILLNESS: Ms. Aguirre is a pleasant 73-year-old female that has a history of cirrhosi s with fairly severe ascites. She was just recently admitted to our facility for acute hypoxic respi ratory failure due to ascites buildup and at that time she had a paracentesis. She also had a repeat large volume paracentesis on 05/16/2018 with the removal of approximately 5.2 liters of fluid and sh e was returned to the skilled nursing. She says that she has been having some diffuse abdominal pain, l eg cramping. She says ever since the fluid started to build up about a month or so ago, it has been relatively constant and it feels almost like muscle cramping. She says it feels like if she could ju st throw up, she would feel better. She also notes some mild nausea and some chills and just feeling very weak and tired, but no fever. She denies any hematemesis, no melena. It was noted in the nurs ing home that her blood pressure was slightly low; however, it is hard to tell whether or not this is her baseline as she tells me that her blood pressure usually is not much above 100, sometimes it run s in the 90s. For these reasons, she was sent over for evaluation and treatment. The cultures from the previous large volume paracentesis were negative. REVIEW OF SYSTEMS: All systems were reviewed and are negative except for that mentioned in the histo ry of present illness. PAST MEDICAL HISTORY: Significant for cirrhosis with ascites, COPD, coronary artery disease, diabete s mellitus type 2, hypertension, hyperlipidemia, cerebrovascular accident, aspiration pneumonia, and fibromyalgia. PAST SURGICAL HISTORY: She had a right femoral neck fracture and she says she has been more or less nonambulatory since then, ankle surgery, cardiac catheterization and stent placement, cholecystectomy , hysterectomy, left carotid endarterectomy. ALLERGIES: ALBUTEROL, BACTRIM, TYLENOL, IODINE, and PHENERGAN. FAMILY HISTORY: Significant for liver disease. SOCIAL HISTORY: She stays at [facility]. She is a former smoker. Her [id number] is her surroga te medical decision maker. When asked about code status, she says she would not want to be resuscita karma or to be placed on a ventilator. She says she is 73 years old and has a lot of pain and she just does not want to have any more pain. MEDICATIONS: These will need to be reconciled. She did not know her medicines. These are taken fro m the electronic records and include hydroxyzine 50 mg q.6 hours as needed, Silver sulfadiazine topic al, Klor-Con 10 mEq at bedtime, potassium chloride 20 mEq daily, MiraLax 17 grams daily, pantoprazole 40 mg daily, Zofran 8 mg q.8 hours, lactulose 30 grams p.r.n., isosorbide 30 mg daily, NovoLog on a sliding scale, Lantus 14 units in the morning and 42 in the p.m., Vicoprofen p.r.n., Lasix 40 mg sandra y, iron sulfate 65 mg daily, Lexapro 10 mg daily, dicyclomine 10 mg twice a day, Delsym 2 teaspoons a s needed, carvedilol 3.125 mg twice daily, and calcium carbonate 500 mg as needed. PHYSICAL EXAMINATION: GENERAL: She is alert and oriented. She appears to be in no acute distress. VITAL SIGNS: Her blood pressure was 90/39 and 90/52, heart rate 69, respiratory rate of 16, temperat ure is 98.0. HEENT: Pupils are equal, round, and reactive. Extraocular muscles are intact. Sclerae are anicteri c. Throat no erythema, no exudates. She does have poor dentition. NECK: There is no jugular venous distention, no bruits. LUNGS: Clear to auscultation. There is no wheezing, no rales. CARDIOVASCULAR: She has a normal S1, S2, no S3 or S4. Grade 2/6 systolic murmur. ABDOMEN: Distended. She has got some mild diffuse tenderness. There is a positive fluid wave and s he did have a mild redness on the lower part of her abdomen. EXTREMITIES: She has got changes of chronic venous stasis with thickening of the skin and some mild discoloration and palpable dorsalis pedis pulses. NEUROLOGIC: The exam is nonfocal. LABORATORY DATA: White blood cell count 3.2, hemoglobin 12.1, hematocrit is 36.9, platelet count is 108. Sodium 138, potassium 4.3, chloride is 105, CO2 is 27, BUN of 21, creatinine 1.02, glucose is 8 7. Urinalysis is negative. ASSESSMENT AND PLAN: This is a very pleasant 73-year-old female who presents with generalized weakne ss, moderate hypotension and some vague abdominal discomfort. She appears to have fairly large volum e ascites, even after recently having 5.2 liters of fluid removed. There is a concern that she could possibly have recurrence of significant ascites and given the volume of the fluid, she is at risk fo r spontaneous bacterial peritonitis. She will be monitored in observation. Blood and urine cultures have been obtained. We will consult Interventional Radiology to see if they can repeat a large volu me paracentesis under ultrasound guidance. We will send the fluid once again for cell count and diff erential. We will hold off on any IV antibiotics until the paracentesis can be done. 1. We will consult Gastroenterology as it appears as if she may have refractory ascites. We will ne ed to reconcile and restart her home medications as indicated.
[2018-05-21] MEDS: Ondansetron HCl/PF 4 MG/2 ML Vial IVP PRN (12:42)
[2018-05-21] MEDS ORDERED: Albumin 25% 25 GM/100 ML BOT IVPB SCH (15:00)
[2018-05-21] MEDS: cefTRIAXone\\ROCEPHIN 1 GM in Sodium Chloride 0.9% 100 ML IVPB SCH (17:48)
[2018-05-21] MEDS: Dicyclomine 10 MG CAP PO SCH (20:10)
[2018-05-21] MEDS: Carvedilol 3.125 MG TAB PO SCH (20:10)
[2018-05-21] MEDS ORDERED: Insulin Glargine 42 UNITS in Pre-Filled Syringe 1 EACH SC SCH (21:00)
[2018-05-21] MEDS ORDERED: INSULIN GLARGINE HUM REC ANLOG 42 UNIT SQ SCH (21:00)
[2018-05-21] MEDS: metroNIDAZOLE 500 MG in Premix Bag 1 BAG IVPB SCH (23:14)
[2018-05-22] MEDS: Albumin 25% 25 GM/100 ML BOT IVPB SCH ×3 (00:24→18:02)
[2018-05-22] MEDS: hydrOXYzine 25 MG TAB PO PRN ×2 (00:24→20:44)
[2018-05-22 05:28] LABS: INR-International Normal Ratio 1.8; Prothrombin Time 20.7 SEC (12.0-14.7)
[2018-05-22 05:34] LABS: Anion Gap 11 mmol/L (10-20); BUN (Urea Nitrogen) 20 mg/dL (9.8-20.1); Calc. Creatinine Clearance 103 mL/min (70-130); Calcium 8.5 mg/dL (7.8-10.44); Carbon Dioxide 27 mmol/L (23-31); Chloride 104 mmol/L (98-107); Estimated GFR-MDRD 68; Glucose 132 mg/dL (83-110); Potassium 4.4 mmol/L (3.5-5.1); Sodium 138 mmol/L (136-145)
[2018-05-22 05:36] LABS: #Eosinphils 0.1 thou/uL (0.0-0.7); #Lymphocytes 0.9 thou/uL (1.20-3.40); #Monocytes 0.5 thou/uL (0.11-0.59); #Neutrophils 3.2 thou/uL (1.40-6.50); %Basophils 0.5 % (0.0-1.0); %Eosinophils 1.7 % (0.0-10.0); %Lymphocytes 19.4 % (21.0-51.0); %Monocytes 10.2 % (0.0-10.0); %Neutrophils 68.2 % (42.0-75.0); Hemoglobin 11.7 g/dL (12.0-16.0); Mean Corpuscular HGB CONC 34.7 g/dL (32.0-36.0); Mean Corpuscular Hemoglobin 34.3 pg (27.0-31.0); Mean Corpuscular Volume 98.8 fL (78.0-98.0); Mean Platelet Volume 7.2 fL (7.4-10.4); Platelet Count 88 thou/uL (130-400); RBC Distribution Width 13.1 % (11.5-14.5); Red Blood Cell (RBC) Count 3.41 mill/uL (4.20-5.40); White Blood Cell (WBC) Count 4.6 thou/uL (4.8-10.8)
[2018-05-22] MEDS: Carvedilol 3.125 MG TAB PO SCH ×2 (05:57→20:31)
[2018-05-22] MEDS: metroNIDAZOLE 500 MG in Premix Bag 1 BAG IVPB SCH ×3 (05:57→21:53)
[2018-05-22] MEDS ORDERED: INSULIN GLARGINE HUM REC ANLOG 14 UNIT SQ SCH (07:30)
--- NOTE | 2018-05-22 08:23 | CON ---
DATE OF CONSULTATION: 05/21/2018 REASON FOR CONSULTATION: Hypotension, abdominal pain, and worsening ascites. HISTORY OF PRESENT ILLNESS: Ms. Aguirre is a 73-year-old female with known cirrhosis from nonalcoholic steatohepatitis. She has had 2 paracenteses one from the of this month and one was in the of this month. Prior to that, she reportedly had not had any paracentesis. She has also been more f atigued recently. She went home from the hospital after paracentesis on the on some Lasixkelly h she states she has been on. Ultimately, she has been on fluid restriction, but has gained weight b ack. It has noticed worsening ascites and also some edema in her abdominal wall and mainly was sent from the snf because of this and the fact her blood pressure was going down. She has got so me pain in the right lower abdomen, but notes her abdomen feels like it pulls over to that side. In the past, she has had varices. There has been banding a couple of times but has no bleeding recently in her last esophagogastroduodenoscopy varices in 08/27. Actually between her 2 paracentesis, she had a left carotid endarterectomy with patch angioplasty on 05/06. In January of this year, she h ad a right intertrochanteric femur fracture repair. Her last EGD was in 08/2015 at this facility and grade II varices with no stigmata of bleeding. The patient denies any fever or chills. She states her blood pressure usually runs systolics in the 90s to 100s. She denies any dysuria, frequency, or urgency. She has no rashes. She denies any conf usion. In the emergency room, notes that she had some low blood pressure. She was asymptomatic when the blood pressure was 108/palpable with some low grade abdominal pain. She has no signs of bleedin g. She was given some Motrin and a liter of normal saline. She was complaining of muscle spasms in her leg, so we went ahead and admitted her. Presently, she feels about the same. REVIEW OF SYSTEMS: Positive for profound fatigue and inability to do much, not getting short of jack th. Negative for chest pain or shortness of breath. Negative for melena, hematochezia, hematemesis, dysphagia, or odynophagia. Positive for orthopnea, positive for dyspnea. Negative for wheezing or cough. Negative for dysuria, frequency, or urgency. Positive for peripheral edema. Negative for co nfusion. PAST MEDICAL HISTORY: Cirrhosis secondary to nonalcoholic steatohepatitis, COPD, coronary artery dise ase, type 2 diabetes mellitus, hypertension, hyperlipidemia, prior CVA, history of prior aspiration p neumonia, history of fibromyalgia. PAST SURGICAL HISTORY: Right femoral neck fracture this year, carotid endarterectomy this year, chol ecystectomy, hysterectomy, cardiac catheterization in the past. ALLERGIES: ALBUTEROL, BACTRIM, TYLENOL, IODINE and PHENERGAN. FAMILY HISTORY: Significant for liver disease. She does not remember. SOCIAL HISTORY: She is living at [facility] now. She used to smoke. MEDICATIONS: At home, hydroxyzine p.r.n., triamcinolone, p.r.n., Silvadene p.r.n., potassium 10 at b edtime 20 q.a.m., propranolol, MiraLax, Protonix, Zofran, isosorbide mononitrate, lactulose, insulin, hydrocodone, furosemide 40 p.o. q. day, iron, Lexapro, dextromethorphan polistirex, carvedilol 3.125 b.i.d. MEDICATIONS HERE: Maalox, Coreg, dicyclomine, Delsym p.r.n., Pepcid, iron, hydrocodone p.r.n., insul in, lactulose. PHYSICAL EXAMINATION: GENERAL: The patient is resting comfortably in bed. Three family members here with her. She is katlyn rt, oriented to person, place and time. She has no distress. She is breathing comfortably. VITAL SIGNS: Temperature is 98.2. She has been afebrile since admission, pulse is 84, blood pressur e 190/52, 126/82. HEENT: She is mildly pale. She looks chronically ill. She is overweight. NECK: No JVD. LUNGS: Clear. HEART: Regular rate and rhythm. ABDOMEN: Protuberant. She has got a pannus edema, goes around to her back as well. She may have so me shifting dullness or fluid, it is hard to tell. EXTREMITIES: Reveal trace edema, mild erythema in the skin, but no overt cellulitis. LABORATORY STUDIES: White count 3.2, hemoglobin 12.1, platelet count 108, MCV 101. INR not done. S odium 138, chloride 105, bicarbonate 27, potassium 3.4, BUN 21 from 20, creatinine is 1.02. AST and ALT are 36 and 18, protein is 5, albumin is 2.5, cortisol level on 02/07/2018 was 8.2. TSH 1.7 in . Fluid from that time on 05/03/2018 showed cloudy turbid fluid white count 278 on 05/16/2018 t hat was cloudy, turbid. Hemoglobin 8.4, 22% segs. She has glucose of 146, protein of 1.1. LDH 47. Radiologist notes that the fluid was milky barreto liquid. ASSESSMENT: Recurrent ascites. This may be just related to decompensated nature of her cirrhosis. There have been no signs of tumor or malignancy on her CT scan and the fluid on 05/04/2018 showed lym phocytes, but still shows neutrophils with no malignant cells. There are no overt signs of right hea rt failure, which she has history of chronic obstructive pulmonary disease this could be contributing . There has been no SBP. The characterization of fluid as milky barreto, raises a concern of whether re sults with the content, possibly could be chylous ascites. One of the issues may be it is hard for h er to perfuse her kidneys with low blood pressure and therefore she develops refractory ascites not r esponsive to diuretics, may be reasonable to consider cutting back on her Coreg, but I think would astorga ve to get Cardiology involved in that. I think it will be the decision to her primary gastrologist, Dr. Armijo, who knows her very well. RECOMMENDATIONS: 1. Give some albumin today and empiric antibiotics. If she has pain, make sure that she does not astorga ve any SBP. Plan for paracentesis tomorrow. Repeat albumin on the fluid as well as total protein an d triglycerides. 2. Alpha fetoprotein for hepatoma screening. Imaging does not show anything mass like, but most rec ent images has been done without contrast.
[2018-05-22] MEDS ORDERED: Lidocaine 1% PF 5 ML VIAL ONE (10:09)
--- NOTE | 2018-05-22 12:52 | ULT ---
ULTRASOUND GUIDED PARACENTESIS 05/22/18 COMPARISON: 05/16/18. COMPARISON: 05/16/18 HISTORY: 73-year-old female with symptomatic ascites. FINDINGS: Informed consent obtained prior to the procedure. Preprocedural imaging demonstrates ascites within the right upper quadrant. Skin overlying this regio n is prepped and draped in a normal sterile fashion and anesthetized with 1% buffered lidocaine. With direct sonographic guidance, A 5 [place] Eagle-i [place]h catheter is advanced into the ascites within the right upper quadrant and removal of the stylet yields yellow milky fluid. 2 liters are removed. Patient sandie erated the procedure well. IMPRESSION: Successful ultrasound guided paracentesis yielding two liters of yellow milky fluid. POS: [facility]
[2018-05-22 12:54] LABS: BF Color Yellow; Body Fluid Source PARACENTESIS FLD; Clarity Hazy (Clear); RBC Background Count 0.004; Tube # EDTA; WBC/NonHematic-Auto 223 /cumm
[2018-05-22 13:17] LABS: BF RBC Count - Manual 453 /cumm
[2018-05-22] MEDS: Polyethylene Glycol 3350 17 GM Packet PO SCH (13:34)
[2018-05-22] MEDS: Famotidine 20 MG TAB PO SCH ×2 (13:35→20:31)
[2018-05-22] MEDS: Insulin Glargine 14 UNITS in Pre-Filled Syringe 1 EACH SC SCH (13:35)
[2018-05-22] MEDS: Dicyclomine 10 MG CAP PO SCH ×2 (13:36→20:31)
[2018-05-22] MEDS: Escitalopram Oxalate 10 mg Tablet PO SCH (13:36)
[2018-05-22] MEDS: Ferrous Sulfate 325 MG TAB PO SCH (13:36)
[2018-05-22] MEDS: Potassium Chloride 20 MEQ TAB PO SCH (13:36)
[2018-05-22 14:24] LABS: BF Segmented Neutrophils 2 %; Cell Count Non Hematic 81 %; Lymphocytes 17 %
[2018-05-22] MEDS: Ondansetron HCl/PF 4 MG/2 ML Vial IVP PRN (15:40)
--- NOTE | 2018-05-22 15:42 | PDOC.PN ---
- Subjective Encounter Start Date: 05/22/18 Encounter Start Time: 15:40 Ms. Aguirre was seen today in follow-up. She does not have any new complaints. - Objective Resuscitation Status: Resuscitation Status DNR:Do Not Resuscitate MAR Reviewed: Yes Vital Signs & Weight: Vital Signs (12 hours) Temp Pulse Pulse Resp BP BP Pulse Ox 05/22/18 11:33 98.1 F 75 16 133/77 93 L 05/22/18 09:08 76 124/65 05/22/18 08:00 98.4 F 79 16 05/22/18 07:52 98.4 F 79 16 97/59 L 97 05/22/18 04:43 94 L 05/22/18 04:19 98 F 85 16 122/57 L 93 L Pulse Ox 05/22/18 11:33 05/22/18 09:08 98 05/22/18 08:00 05/22/18 07:52 05/22/18 04:43 05/22/18 04:19 Weight Weight 234 lb 14.4 oz I&O: 05/21/18 05/22/18 05/23/18 06:59 06:59 06:59 Intake Total 480 1410 Balance 480 1410 Result Diagrams: 05/22/18 05:06 05/22/18 05:06 Additional Labs: Accuchecks 05/22/18 05/22/18 05/21/18 11:33 05:28 20:06 POC Glucose 112 H 118 H 107 05/21/18 16:42 POC Glucose 88 Phys Exam - Physical Examination HEENT: PERRLA Respiratory: no wheezing, no rales, no rhonchi, clear to auscultation bilateral Cardiovascular: RRR, no significant murmur, no rub Gastrointestinal: soft + abdominal distention, + diffuse tenderness Musculoskeletal: edema present trace pedal edema, with chronic venous stasis changes Dx/Plan (1) Ascites Code(s): R18.8 - OTHER ASCITES Status: Chronic Comment: s/p paracentesis, pt to followup with GI as outpatient. Pt to have repeat paracentesis today, followed by albumin IV. (2) CAD (coronary artery disease) Code(s): I25.10 - ATHSCL HEART DISEASE OF [place] CORONARY ARTERY W/O ANG PCTRS Status: Chronic Qualifiers: Comment: stable (3) COPD (chronic obstructive pulmonary disease) Status: Chronic (4) Cirrhosis of liver Code(s): K74.60 - UNSPECIFIED CIRRHOSIS OF LIVER Status: Chronic (5) DM type 2 (diabetes mellitus, type 2) Status: Chronic Qualifiers: Comment: on accuchecks, insulin sliding scale - Plan * Ascites- recurrent- not sure the etiology of the recurrent ascities * Continue Lasix, and she had Paracentesis today- fluid has been sent for cell count, and diff, as well as to determine the serum Protein albumin gradient * Hypotension- her blood pressure has been better * COPD - stable * DM- blood glucose is stable.
[2018-05-22] MEDS: cefTRIAXone\\ROCEPHIN 1 GM in Sodium Chloride 0.9% 100 ML IVPB SCH (16:55)
[2018-05-22] MEDS: HumaLOG 300 UNITS/3 ML VIAL SC PRN (17:08)
[2018-05-22] MEDS ORDERED: Insulin Glargine 42 UNITS in Pre-Filled Syringe 1 EACH SC SCH (21:00)
--- NOTE | 2018-05-23 00:51 | PRG ---
DATE OF SERVICE: 05/22/2018 HISTORY OF PRESENT ILLNESS: Ms. Sarah Aguirre is a 73-year-old female with cirrhosis, diabetes mellitus and COPD. The patient was hospitalized with a recent weight gain, abdominal pain. She underwent a large volume paracentesis today. The fluid was actually milky appearing. Her triglyceride level is only 103. There is no any exudate and there is no evidence of spontaneous bacterial peritonitis. The patient complains of abdominal, which is more on the right side. She was having abdominal pain before on the left side, but now the pain have moved to right side. She is sore all over. There is no nausea, no vomiting. PHYSICAL EXAMINATION: GENERAL: Appears comfortable. She is afebrile. VITAL SIGNS: Pulse is 75, blood pressure is 133/77. CARDIOVASCULAR: First and second heart sounds normal. LUNGS: Clear to auscultation. ABDOMEN: Flabby and distended. Abdomen is tender over the right side of abdomen. There is no rebound or guarding. LABORATORY DATA: The lab data from ascites fluid today shows no evidence of spontaneous bacterial peritonitis. . Her triglyceride level in the fluid is 103. CLINICAL IMPRESSION: 1. Liver cirrhosis, rule out ascites. 2. Diabetes. 3. Chronic obstructive pulmonary disease. 4. Chronic pain, etiology unknown. RECOMMENDATIONS: 1. Continue IV albumin. 2. Fluid and salt restriction. 3. Based on the recent diuretics and hopefully, the patient will be discharged home tomorrow. ELLIE
[2018-05-23] MEDS: hydrOXYzine 25 MG TAB PO PRN (03:28)
[2018-05-23] MEDS: HumaLOG 300 UNITS/3 ML VIAL SC PRN (06:05)
[2018-05-23] MEDS: metroNIDAZOLE 500 MG in Premix Bag 1 BAG IVPB SCH (06:06)
[2018-05-23] MEDS: Escitalopram Oxalate 10 mg Tablet PO SCH (08:22)
[2018-05-23] MEDS: Ferrous Sulfate 325 MG TAB PO SCH (08:23)
[2018-05-23] MEDS: Dicyclomine 10 MG CAP PO SCH (08:23)
[2018-05-23] MEDS: Polyethylene Glycol 3350 17 GM Packet PO SCH (08:23)
[2018-05-23] MEDS: Potassium Chloride 20 MEQ TAB PO SCH (08:23)
[2018-05-23] MEDS: Famotidine 20 MG TAB PO SCH (08:23)
[2018-05-23] MEDS: Insulin Glargine 14 UNITS in Pre-Filled Syringe 1 EACH SC SCH (08:23)
[2018-05-23] MEDS: Carvedilol 3.125 MG TAB PO SCH (08:23)
[2018-05-23 08:41] VITALS: BP 95/52; TEMP 98.1
--- NOTE | 2018-05-23 14:02 | PDOC.PN ---
- Subjective Encounter Start Date: 05/23/18 Encounter Start Time: 14:00 Ms. Aguirre was seen today in follow-up. She does not have any new complaints. - Objective Resuscitation Status: Resuscitation Status DNR:Do Not Resuscitate MAR Reviewed: Yes Vital Signs & Weight: Vital Signs (12 hours) Temp Pulse Resp BP BP Pulse Ox 05/23/18 08:40 98.1 F 74 20 95/52 L 98 05/23/18 08:07 98 05/23/18 08:00 98.1 F 74 20 05/23/18 04:00 97.7 F 74 18 91/57 L 98 Weight Weight 234 lb 14.4 oz I&O: 05/22/18 05/23/18 05/24/18 06:59 06:59 06:59 Intake Total 1410 1540 Balance 1410 1540 Result Diagrams: 05/22/18 05:06 05/22/18 05:06 Additional Labs: Accuchecks 05/23/18 05/23/18 05/22/18 11:22 04:53 20:22 POC Glucose 99 157 H 120 H 05/22/18 16:41 POC Glucose 213 H Phys Exam - Physical Examination HEENT: PERRLA Respiratory: no wheezing, no rales, no rhonchi, clear to auscultation bilateral Cardiovascular: RRR, no significant murmur, no rub Gastrointestinal: soft, non-tender, positive bowel sounds + distended Musculoskeletal: edema present Dx/Plan (1) Ascites Code(s): R18.8 - OTHER ASCITES Status: Chronic Comment: s/p paracentesis, pt to followup with GI as outpatient. Pt to have repeat paracentesis today, followed by albumin IV. (2) CAD (coronary artery disease) Code(s): I25.10 - ATHSCL HEART DISEASE OF [place] CORONARY ARTERY W/O ANG PCTRS Status: Chronic Qualifiers: Comment: stable (3) COPD (chronic obstructive pulmonary disease) Status: Chronic (4) Cirrhosis of liver Code(s): K74.60 - UNSPECIFIED CIRRHOSIS OF LIVER Status: Chronic (5) DM type 2 (diabetes mellitus, type 2) Status: Chronic Qualifiers: Comment: on accuchecks, insulin sliding scale - Plan * Refractory ascites- she has had some hypotension- so will discontinue Carvediolol, hopefully she will get better kidney perfusion that way * Stable for discharge home on Palliative care..
[2018-05-23] MEDS ORDERED: Insulin Glargine 42 UNITS in Pre-Filled Syringe 1 EACH SC SCH (21:00)
--- NOTE | 2018-05-23 23:15 | DIS ---
DATE OF ADMISSION: 05/21/2018 DATE OF DISCHARGE: 05/23/2018 PRIMARY CARE PHYSICIAN: Dr. Marrufo. DISCHARGE DISPOSITION: Back to [facility] with palliative care. DISCHARGE DIAGNOSES: 1. Cirrhosis due to nonalcoholic steatohepatitis. 2. Refractory ascites secondary to #1. 3. Coronary artery disease. 4. Chronic respiratory failure secondary to chronic obstructive pulmonary disease. 5. Diabetes mellitus. 6. Hypertension. 7. Hyperlipidemia. 8. Cerebrovascular accident. DISCHARGE MEDICATIONS: Please note that due to hypotension the patient has been taken off of carvedi lol as well as isosorbide. She is to continue potassium chloride 20 mEq daily and 10 mEq at bedtime, MiraLax 17 grams daily, Protonix 40 mg daily, Zofran 8 mg sublingual as needed, lactulose 30 grams d aily, Lantus insulin 14 units in the morning, 42 in the evening, NovoLog sliding scale, hydroxyzine 5 0 mg q.6 hours, Vicoprofen 1 tablet twice a day as needed, Lasix 40 mg daily, iron sulfate 325 mg yolanda ly, Lexapro 10 mg daily, dicyclomine 10 mg twice a day, Delsym as needed and Tums 500 mg twice a day as needed. PROCEDURES DONE DURING ADMISSION: She had a large volume paracentesis with removal of 2 liters of mi lky fluid. The cultures were negative. CODE STATUS: DNR. ALLERGIES: ALBUTEROL, BARIUM SULFATE, TYLENOL, IODINE, and PROMETHAZINE. HOSPITAL COURSE: Ms. Aguirre is a very pleasant 73-year-old female that presented to the emergency room with hypotension. [facility]. She also has been having some abdominal pain off and on, but this has been going on for several months. She was admitted and taken off of C oreg as well as Imdur for the hypotension. It is unclear why she is accumulating ascites so quickly as this has only recently started happening. She was seen by her technology adoption manager who recommended discontinuing the medications that lower blood pressure as she may have poor renal perfusion due to t he hypotension which could potentiate her ascites. This was done. She is to continue a low sodium d iet and fluid restriction. Also, during her hospital stay, she decided to change her code status fro m FULL CODE to DNR and she also would like to pursue palliative care in the [facility] setting. Radha pina was visited by the palliative care team here in the hospital and the plan is to pursue palliative c are in the [facility] setting.
== END 2018-05-23 15:37 ==
LOC: ERS 20:20 → T4-B 23:46
PROVIDERS: ADMIT Internal Medicine; ATTEND Internal Medicine
PROC: 0W9G3ZZ Drainage of Peritoneal Cavity, Percutaneous Approach (ICD-10-PCS; principal; 2018-05-22)
DX: K75.81 Nonalcoholic steatohepatitis (NASH) (principal); K74.60 Unspecified cirrhosis of liver; R18.8 Other ascites; J44.9 Chronic obstructive pulmonary disease, unspecified; J96.10 Chronic respiratory failure, unspecified whether with hypoxia or hypercapnia; I95.9 Hypotension, unspecified; R10.9 Unspecified abdominal pain; I25.10 Atherosclerotic heart disease of native coronary artery without angina pectoris; E11.9 Type 2 diabetes mellitus without complications; I10 Essential (primary) hypertension; E78.5 Hyperlipidemia, unspecified; M79.7 Fibromyalgia; G89.4 Chronic pain syndrome; E66.3 Overweight; Z68.41 Body mass index [BMI] 40.0-44.9, adult; Z66 Do not resuscitate; Z86.73 Personal history of transient ischemic attack (TIA), and cerebral infarction without residual deficits; Z87.891 Personal history of nicotine dependence; Z91.041 Radiographic dye allergy status; Z79.4 Long term (current) use of insulin; Z79.899 Other long term (current) drug therapy; Z88.8 Allergy status to other drugs, medicaments and biological substances
CPT/HCPCS: 49083; 71045; 80048; 80053; 81003; 82042; 82105; 82962 ×3; 83605; 84157; 84478; 85025 ×2; 85610; 87040; 87070; 87086; 87205; 89051; 96360; 96361 ×2; 96365; 96366; 96367; 96375; 96376; 97139 ×2; 97535; 99285; G0378 ×2; G8978; G8979; G8987; G8988; G8989; P9047 ×2; 36415; 36416; 85060; A4216; J0696; J1956; J2001; J2405; J7050

== ENCOUNTER 2018-06-12 09:30 | Day surgery (SDC) | payer MEDICARE, MEDICAID ==
[2018-06-09 15:03] VITALS: BMI 37.8
[2018-06-12 10:29] VITALS: BP 133/32; TEMP 98.4
[2018-06-12] MEDS ORDERED: Fentanyl 100 MCG/2 ML VIAL ONE (11:04)
[2018-06-12] MEDS ORDERED: Midazolam HCl 2 mg/2 ml Vial ONE (11:04)
[2018-06-12] MEDS ORDERED: Sodium Bicarbonate 2.5 MEQ/5 ML VIAL ONE (11:04)
--- NOTE | 2018-06-12 12:00 | ULT ---
ABDOMINAL ULTRASOUND: HISTORY: Patient with chronic ascites. The exam is a limited abdominal ultrasound to evaluate for extent of a scites. FINDINGS: Multiple longitudinal and transverse images of the abdomen were obtained using a multihertz curviline ar transducer. Real-time images obtained. Large pockets of free intraperitoneal fluid seen. IMPRESSION: Ascites. POS: [facility]
--- NOTE | 2018-06-12 15:03 | CT ---
CT GUIDED PLACEMENT OF A PLEURX DRAINAGE CATHETER IN THE PERITONEAL CAVITY WITH ANTERIOR SKIN TUNNELI NG: HISTORY: K72.9, end stage liver disease. Chronic ascites. TECHNIQUE: Informed consent was obtained from the patient and her family. The patient is scheduled to be admitt ed to Hospice care. We are being asked by Dr. Raines and Dr. Ricky Hayes to place a permanent drai nage catheter into the peritoneal cavity for purposes of ascites drainage. The ascitic fluid was localized using CT guidance. The overlying skin was prepped and draped in the usual sterile manner. A 1% Lidocaine solution was used to anesthetize the overlying soft tissues. A small dermatotomy was made. Using CT guidance, the peritoneal fluid was accessed using a 5 [place] i ntroducer needle. An 0.035 wire was introduced into the peritoneal cavity. The PleurX catheter was tunneled under the skin with the cuff just medial to the insertion site. A peelaway sheath was introduced and the tunnel catheter was placed through the peelaway sheath into the peritoneal cavity. Position was confirmed using CT. Introduction site was closed using an absorbable suture. The site was covered by appropriate sterile dressing. IMPRESSION: Marked cirrhotic changes of the liver with ascites. There is introduction of an intraperitoneal drai nage catheter which is tunneled partially through the anterior skin. The patient is to be followed by home health and admission into Hospice care. Findings discussed with the patient and her [id number]. CODE CR POS: [facility]
== END 2018-06-12 14:20 | disposition home or self-care (01) ==
LOC: SPEC 09:30
PROVIDERS: ATTEND Surgery
PROC: 0W9G30Z Drainage of Peritoneal Cavity with Drainage Device, Percutaneous Approach (ICD-10-PCS; principal; 2018-06-12)
DX: K72.90 Hepatic failure, unspecified without coma (principal); R18.8 Other ascites; K74.60 Unspecified cirrhosis of liver; J44.9 Chronic obstructive pulmonary disease, unspecified; I25.10 Atherosclerotic heart disease of native coronary artery without angina pectoris; E11.9 Type 2 diabetes mellitus without complications; I10 Essential (primary) hypertension; M81.0 Age-related osteoporosis without current pathological fracture; E78.5 Hyperlipidemia, unspecified; E78.00 Pure hypercholesterolemia, unspecified; M19.90 Unspecified osteoarthritis, unspecified site; F41.8 Other specified anxiety disorders; G47.00 Insomnia, unspecified; F17.290 Nicotine dependence, other tobacco product, uncomplicated; Z86.73 Personal history of transient ischemic attack (TIA), and cerebral infarction without residual deficits; Z79.4 Long term (current) use of insulin; Z79.899 Other long term (current) drug therapy; Z88.8 Allergy status to other drugs, medicaments and biological substances; Z91.041 Radiographic dye allergy status; Z95.5 Presence of coronary angioplasty implant and graft
CPT/HCPCS: 49020; 49418; 76705; 77002; C1729; J2250; J3010